=== PATIENT | female | born 1980 | race Caucasian/White ===

== ENCOUNTER 2016-11-17 15:37 | Emergency (ER) | payer OTHER ==
[~2016-11-17] VITALS: Ht 180.3 cm; Wt 107.9 kg
[~2016-11-17 15:37] MED LIST: CYM20 PO; FLUO20CA35 PO; FLUO40CA8 PO; FURO40TA3 PO; LINA1CAP PO; LITH300T2 PO; LYR50 PO; POTA-327 PO; TRAZ100T29 PO
[2016-11-17 15:39] VITALS: TEMP 36.9; Ht 180.3 cm; Wt 107.9 kg
[2016-11-17] MEDS ORDERED: POTA20TA16 PO (16:01)
[2016-11-17] MEDS ORDERED: OPTIRAY 320 IV PRN (16:15)
[2016-11-17 16:51] LABS: COMPLETE YES; EOS % 0.7 %; HEMATOCRIT 36.7 % (37-47); IG% 0.1 %; LYMPH % 23.2 %; LYMPH ABS # 1.72 K/uL (1.2-3.4); MEAN CELL VOLUME 91.8 fL (80-100); MEAN CORPUSCULAR HEMOGLOBIN 30.5 pg (25-34); MEAN CORPUSCULAR HGB CONC 33.2 g/dl (32-36); MONO % 4.1 %; NEUT % 71.9 %; PLATELET COUNT 175 K/uL (130-400)
[2016-11-17 17:14] LABS: ALT/SGPT 20 U/L (12-78); AST/SGOT 10 U/L (15-37); BLOOD UREA NITROGEN 16 mg/dl (7-18); CALCIUM 8.5 mg/dl (8.5-10.1); CARBON DIOXIDE 28 mmol/L (21-32); CHLORIDE 107 mmol/L (98-107); CREATININE 0.82 mg/dl (0.60-1.20); GLUCOSE 110 mg/dl (70-99); POTASSIUM 3.7 mmol/L (3.5-5.1); SODIUM 141 mmol/L (136-145)
[2016-11-17 17:16] LABS: ALB/GLOB RATIO 1.1 (0.9-2); ALKALINE PHOSPHATASE 54 U/L (45-117)
[2016-11-17] MEDS ORDERED: MoRPHine SULFATE 10 MG/ML CARP/VIAL IV STA (17:21)
[2016-11-17 17:45] LABS: URINE APPEARANCE CLEAR (CLEAR); URINE BILIRUBIN NEG (NEG); URINE COLOR YELLOW; URINE NITRITE NEG (NEG); URINE SPECIFIC GRAVITY 1.032 (1.000-1.030); UROBILINOGEN NEG (NEG); ZZUR CULT IF INDIC CLEAN CATCH NO
[2016-11-17 18:06] LABS: MANUAL MICROSCOPIC REQUIRED? NO; REVIEW REQ? NO
[2016-11-17] MEDS ORDERED: MoRPHine SULFATE 4 MG/ML 1 ML CARP\\VIAL IV STA (18:36)
--- NOTE | 2016-11-17 18:46 | DIAGNOSTIC IMAGING REPORT ---
ABDOMEN AND PELVIS CT WITH IV CONTRAST CT DOSE: 970.88 mGy.cm HISTORY: Right lower quadrant abdominal pain. TECHNIQUE: Multiaxial CT images of the abdomen and pelvis were performed following the use of intravenous contrast. COMPARISON STUDY: Abdomen and pelvis CT 02/28/2015. FINDINGS: Trace bilateral pleural effusions and a trace pericardial effusion. Groundglass densities within the lung bases posteriorly likely represent mild atelectasis. No pneumoperitoneum. No pneumatosis. No suspicious lytic or blastic osseous lesions. Mild thickening of the distal esophagus. Trace pelvic free fluid. The liver, spleen, gallbladder, pancreas, adrenal glands, and right kidney are unremarkable. There is a punctate stone within the left kidney. No hydronephrosis. Normal bladder and uterus. There are few small bilateral ovarian cysts which are in the range of normal limits. No retroperitoneal lymphadenopathy. No bowel wall thickening or obstruction. Normal appendix. IMPRESSION: 1. No bowel wall thickening or obstruction. 2. Normal appendix. 3. Left-sided nephrolithiasis. No hydronephrosis. 4. Trace pericardial effusion and trace bilateral pleural effusions. 5. Mild thickening of the distal esophagus. Electronically signed by: Ari Davis M.D. 11/17/2016 6:44 PM Dictated Date/Time: 11/17/2016 6:36 PM
--- NOTE | 2016-11-17 19:22 | EMERGENCY ROOM VISIT NOTE ---
History First contact with patient: 15:43 Chief Complaint: ABDOMINAL PAIN Stated Complaint: ABDOMINAL PAIN, DISTENTION Nursing Triage Summary: Pt c/o diarrhea with red blood since Tuesday night, clots in stool, diarrhea, pain in right lower abdomen initially but now it's all over and goes into right side of back as well, and "my belly is distended, I feel like I'm " History of Present Illness The patient is a 35 year old female who presents to the Emergency Room with complaints of abdominal pain and distention. The patient states that she has had "bowel issues" for several months. She states that these symptoms intermittently becomes severe. She states she has had a feeling of distention in her abdomen for the past several days. She did have a loose stool with a small amount of blood several days ago, but states that she has not had any blood in the stools since then. She has been slightly constipated. She reports that today, she has had a severe right lower quadrant pain which has spread to the rest of her abdomen. She states that whenever she eats, she developed severe heartburn. The patient has seen her primary care provider and most recently saw him yesterday for the symptoms. She has seen gastroenterology , who prescribed her Linzess. She states she has tried several other medications in the past with no relief. She has had some associated nausea, but no vomiting. She denies chance of . She denies urinary symptoms, vaginal discharge, vaginal bleeding, chest pain or shortness of breath. Review of Systems A complete 10-point Review of Systems was discussed with the patient, with pertinent positives and negatives listed in the History of Present Illness. All remaining Review of Systems questions can be considered negative unless otherwise specified. Past Medical/Surgical History Medical Problems: (1) Alcohol dependence (2) Anxiety (3) Bipolar 1 disorder (4) Depression (5) GERD (gastroesophageal reflux disease) (6) Tobacco abuse (7) Vitamin D deficiency Surgical Problems: (1) Previous section Social History Problems: (1) Alcohol abuse Family History FH: cancer FH: diabetes mellitus FH: heart disease FH: lung disease FH: seizures Social History Smoking Status: Current Some Day Smoker Alcohol Use: none Drug Use: none Marital Status: in relationship Housing Status: lives with significant other Occupation Status: employed Current/Historical Medications Scheduled Fluoxetine (Prozac), 40 MG PO QPM Furosemide (Lasix), 40 MG PO QAM Notus Carbonate (Notus Carbonate Tab), 600 MG PO HS Potassium Ext Rel (Klor-Con), 10 MEQ PO QAM Trazodone Hcl (Trazodone), 200 MG PO HS Allergies Coded Allergies: No Known Allergies (Verified , 11/17/16) Physical Exam Vital Signs Date Time Temp Pulse Resp B/P Pulse Ox O2 Delivery O2 Flow Rate FiO2 11/17/16 19:30 71 16 105/72 98 Room Air 11/17/16 17:35 58 20 101/62 97 Room Air 11/17/16 15:39 36.9 90 16 105/72 98 Room Air Physical Exam VITALS: Vitals are noted on the nurse's note and reviewed by myself. Vital signs stable. GENERAL: This is a 35-year-old female, in no acute distress, nondiaphoretic, well-developed well-nourished. SKIN: Capillary reflex less than 2 seconds. HEENT: Normocephalic. PERRLA. EOMI. Nares patent. Mucous membranes moist. Neck is supple without nuchal rigidity. HEART: Regular rate and rhythm without murmurs gallops or rubs. LUNGS: Clear to auscultation bilaterally without wheezes, rales or rhonchi. No retractions or accessory muscle use. ABDOMEN: Positive bowel sounds x 4. Mild tenderness of the right lower quadrant. No guarding or rebound tenderness. NEURO: Patient was alert and oriented to person place and time. Medical Decision & Procedures ER Provider Diagnostic Interpretation: ABDOMEN AND PELVIS CT WITH IV CONTRAST CT DOSE: 970.88 mGy.cm HISTORY: Right lower quadrant abdominal pain. TECHNIQUE: Multiaxial CT images of the abdomen and pelvis were performed following the use of intravenous contrast. COMPARISON STUDY: Abdomen and pelvis CT 02/28/2015. FINDINGS: Trace bilateral pleural effusions and a trace pericardial effusion. Groundglass densities within the lung bases posteriorly likely represent mild atelectasis. No pneumoperitoneum. No pneumatosis. No suspicious lytic or blastic osseous lesions. Mild thickening of the distal esophagus. Trace pelvic free fluid. The liver, spleen, gallbladder, pancreas, adrenal glands, and right kidney are unremarkable. There is a punctate stone within the left kidney. No hydronephrosis. Normal bladder and uterus. There are few small bilateral ovarian cysts which are in the range of normal limits. No retroperitoneal lymphadenopathy. No bowel wall thickening or obstruction. Normal appendix. IMPRESSION: 1. No bowel wall thickening or obstruction. 2. Normal appendix. 3. Left-sided nephrolithiasis. No hydronephrosis. 4. Trace pericardial effusion and trace bilateral pleural effusions. 5. Mild thickening of the distal esophagus. Laboratory Results 11/17/16 16:20 Red Blood Count 4.00, Mean Corpuscular Volume 91.8, Mean Corpuscular Hemoglobin 30.5, Mean Corpuscular Hemoglobin Concent 33.2, Mean Platelet Volume 11.0, Neutrophils (%) (Auto) 71.9, Lymphocytes (%) (Auto) 23.2, Monocytes (%) (Auto) 4.1, Eosinophils (%) (Auto) 0.7, Basophils (%) (Auto) 0.0, Neutrophils # (Auto) 5.32, Lymphocytes # (Auto) 1.72, Monocytes # (Auto) 0.30, Eosinophils # (Auto) 0.05, Basophils # (Auto) 0.00 11/17/16 16:20 Test 11/17/16 16:20 White Blood Count 7.40 K/uL (4.8-10.8) Red Blood Count 4.00 M/uL (4.2-5.4) Hemoglobin 12.2 g/dL (12.0-16.0) Hematocrit 36.7 % (37-47) Mean Corpuscular Volume 91.8 fL (80-100) Mean Corpuscular Hemoglobin 30.5 pg (25-34) Mean Corpuscular Hemoglobin Concent 33.2 g/dl (32-36) Platelet Count 175 K/uL (130-400) Mean Platelet Volume 11.0 fL (7.4-10.4) Neutrophils (%) (Auto) 71.9 % Lymphocytes (%) (Auto) 23.2 % Monocytes (%) (Auto) 4.1 % Eosinophils (%) (Auto) 0.7 % Basophils (%) (Auto) 0.0 % Neutrophils # (Auto) 5.32 K/uL (1.4-6.5) Lymphocytes # (Auto) 1.72 K/uL (1.2-3.4) Monocytes # (Auto) 0.30 K/uL (0.11-0.59) Eosinophils # (Auto) 0.05 K/uL (0-0.5) Basophils # (Auto) 0.00 K/uL (0-0.2) RDW Standard Deviation 39.3 fL (36.4-46.3) RDW Coefficient of Variation 11.6 % (11.5-14.5) Immature Granulocyte % (Auto) 0.1 % Immature Granulocyte # (Auto) 0.01 K/uL (0.00-0.02) Urine Color YELLOW Urine Appearance CLEAR (CLEAR) Urine pH 6.0 (4.5-7.5) Urine Specific Moore 1.032 (1.000-1.030) Urine Protein NEG (NEG) Urine Glucose (UA) NEG (NEG) Urine Ketones NEG (NEG) Urine Occult Blood NEG (NEG) Urine Nitrite NEG (NEG) Urine Bilirubin NEG (NEG) Urine Urobilinogen NEG (NEG) Urine Leukocyte Esterase NEG (NEG) Urine Test NEG (NEG) Anion Gap 6.0 mmol/L (3-11) Est Creatinine Clear Calc Drug Dose 129.4 ml/min Estimated GFR () 107.5 Estimated GFR (Non- 92.7 BUN/Creatinine Ratio 19.0 (10-20) Calcium Level 8.5 mg/dl (8.5-10.1) Total Bilirubin < 0.1 mg/dl (0.2-1) Aspartate Amino Transf (AST/SGOT) 10 U/L (15-37) Alanine Aminotransferase (ALT/SGPT) 20 U/L (12-78) Alkaline Phosphatase 54 U/L (45-117) Total Protein 6.5 gm/dl (6.4-8.2) Albumin 3.4 gm/dl (3.4-5.0) Globulin 3.1 gm/dl (2.5-4.0) Albumin/Globulin Ratio 1.1 (0.9-2) Lipase 161 U/L (73-393) Medications Administered Medications (Trade) Dose Ordered Sig/Abel Route Start Time Stop Time Status Last Admin Dose Admin Morphine Sulfate (MoRPHine SULFATE INJ) 6 mg NOW STAT IV 11/17/16 17:21 11/17/16 17:22 DC 11/17/16 17:35 6 MG Morphine Sulfate (MoRPHine SULFATE INJ) 4 mg NOW STAT IV 11/17/16 18:36 11/17/16 18:37 DC 11/17/16 18:43 4 MG Medical Decision Differential diagnosis includes gastroenteritis, colitis, appendicitis, cholecystitis, ovarian cyst, ovarian torsion, pelvic inflammatory disease, among others. The patient was evaluated as above. Labs were drawn and IV access was obtained. Imaging studies were performed and read by radiology as above. The patient was medicated with 6 mg morphine IV. She did require an additional 4 mg morphine IV. The patient was reassessed multiple times during their stay in the emergency department and remained in stable condition. The patient is a 35-year-old female who presents today complaining of right lower quadrant abdominal pain. Labs revealed no leukocytosis, anemia or concerning electrolyte abnormality. Urinalysis was not suggestive of infection. Urine was negative. CT scan of the abdomen and pelvis with IV contrast revealed no acute findings within the abdomen. Notably, there were found to be trace pericardial and pleural effusions. I am unsure of the cause and clinical significance of these. The patient was informed of this finding and was told to follow-up with her primary care provider regarding this finding. There was some thickening of the distal esophagus which could be secondary to esophagitis. The patient was instructed to take a PPI. She will follow-up with her primary care provider and vamper. She will return for worsening symptoms. Based on the patient's presentation, lab results, and imaging studies, I feel the patient is stable for outpatient treatment. The patient's case was reviewed with Dr. Menjivar, ED attending physician, who agreed with my assessment and treatment plan. Discharge instructions were reviewed with the patient. The patient verbalized understanding of my assessment and treatment plan and was discharged home in good condition. Impression Primary Impression: Right lower quadrant abdominal pain Departure Information Dispostion Home / Self-Care Condition GOOD Referrals Elaina Paul A. P.A. (PCP) Patient Instructions My [facility] Additional Instructions You have been treated in the Emergency Department your Abdominal Pain. Laboratory results and imaging studies have ruled out any emergent causes for your abdominal pain which would warrant admission or surgery. Your CT scan did show a small amount of fluid around the heart and lungs. He should follow-up with your primary care provider regarding this and for possible cardiology referral. You may begin taking an [id number] acid reducing medication like Prilosec. Drink plenty of water and stay well hydrated. Follow-up with your primary care provider within one week. She should also follow-up with your vamper within 1-2 weeks for further evaluation. Return to the emergency department if your symptoms persist despite treatment plan outlined above or if the following symptoms occur: increased fevers, chills , worsening nausea/vomiting, blood in your stool or urine.
[2016-11-17 19:30] VITALS: BP 105/72; PULSE 71; O2SAT 98
[2017-04-29] MEDS ORDERED: VLTG EXT (15:40)
[2017-04-29] MEDS ORDERED: ANT25 PO (15:40)
== END 2016-11-17 19:41 | disposition home or self-care (01) ==
LOC: C.EDB 15:38 → C.EDC 19:41
DX: R10.31 Right lower quadrant pain (principal); F17.200 Nicotine dependence, unspecified, uncomplicated; F10.94 Alcohol use, unspecified with alcohol-induced mood disorder; F31.9 Bipolar disorder, unspecified; K21.9 Gastro-esophageal reflux disease without esophagitis

== ENCOUNTER 2017-01-05 10:08 | Emergency (ER) | payer OTHER ==
[~2017-01-05] VITALS: Ht 177.8 cm; Wt 108.0 kg
[~2017-01-05 10:08] MED LIST changes: -CYM20 PO; -FLUO20CA35 PO; -LINA1CAP PO; -LYR50 PO; -POTA-327 PO; +POTA20TA16 PO
[2017-01-05 10:12] VITALS: TEMP 36.5; Ht 177.8 cm; Wt 108.0 kg
[2017-01-05] MEDS ORDERED: FLX/5 PO (10:39)
[2017-01-05] MEDS ORDERED: PRLSR20 PO (10:39)
[2017-01-05] MEDS ORDERED: GLC/500 PO (10:39)
[2017-01-05] MEDS ORDERED: MELO15TA4 PO (10:39)
[2017-01-05] MEDS ORDERED: GLC500 PO (10:39)
[2017-01-05] MEDS ORDERED: ZNTT/150 PO (10:39)
[2017-01-05] MEDS ORDERED: FLUO20CA35 PO (10:39)
[2017-01-05 10:48] LABS: BASO % 0.1 %; BASO ABS # 0.01 K/uL (0-0.2); COMPLETE YES; EOS % 0.1 %; HEMATOCRIT 38.1 % (37-47); IG% 0.2 %; LYMPH % 4.2 %; LYMPH ABS # 0.45 K/uL (1.2-3.4); MEAN CORPUSCULAR HEMOGLOBIN 30.8 pg (25-34); MEAN CORPUSCULAR HGB CONC 34.6 g/dl (32-36); MEAN PLATELET VOLUME 10.7 fL (7.4-10.4); MONO % 3.9 %; NEUT % 91.5 %; PLATELET COUNT 190 K/uL (130-400); RED BLOOD COUNT 4.28 M/uL (4.2-5.4); WHITE BLOOD COUNT 10.61 K/uL (4.8-10.8)
[2017-01-05 10:53] LABS: URINE APPEARANCE CLEAR (CLEAR); URINE BILIRUBIN NEG (NEG); URINE COLOR YELLOW; URINE EPITHELIAL CELL AUTO >30 /lpf (0-5); URINE NITRITE NEG (NEG); URINE PH 5.5 (4.5-7.5); URINE SPECIFIC GRAVITY 1.028 (1.000-1.030); UROBILINOGEN NEG (NEG); ZZUR CULT IF INDIC CLEAN CATCH NO
[2017-01-05 10:56] LABS: MANUAL MICROSCOPIC REQUIRED? NO; REVIEW REQ? NO
[2017-01-05 11:00] LABS: BUN/CREATININE RATIO 20.5 (10-20); CALCIUM 8.3 mg/dl (8.5-10.1); POTASSIUM 3.6 mmol/L (3.5-5.1)
[2017-01-05] MEDS ORDERED: FENTANYL CITRATE INJ 50 MCG/1 ML 2 ML VIAL IM ONE (11:30)
[2017-01-05] MEDS ORDERED: FAMOTIDINE IV INJ 40 MG in DEXTROSE 5% 100ML 100 ML IV SCH (11:30)
[2017-01-05] MEDS ORDERED: ONDANSETRON INJ 2 MG/ML 2 ML VIAL IV STA (11:35)
[2017-01-05] MEDS ORDERED: POTASSIUM CHLORIDE 10 MEQ / 100ML WTR IV STA (11:35)
--- NOTE | 2017-01-05 11:43 | EMERGENCY ROOM VISIT NOTE ---
History Report prepared by Jaime: Rhianna Glass Under the Supervision of: Dr. Rowdy Sams D.O. First contact with patient: 10:55 Chief Complaint: VOMITING Stated Complaint: THROWING UP BLOOD,ABD PAIN, WEAKNESS IN LEGS Nursing Triage Summary: pt here with abd pain x 2 weeks, pt states vomited times with pink blood today. pt states also having bilateral leg pains. History of Present Illness The patient is a 36 year old female who presents to the Emergency Room with complaints of worsening abdominal pain for the past 2 weeks. Her pain is located diffusely throughout her abdomen but is worse in the epigastric area. She rates her current pain as a 9/10 in severity. This morning the patient developed nausea and had intermittent vomiting. She states that there is red blood in her vomit, and she describes her emesis as looking "like Toni-Aid." The patient reports abdominal bloating and bilateral leg pain, as well as " dizzy spells" where she becomes hot and diaphoretic. She was evaluated by her PCP for her abdominal pain 2 weeks ago and was prescribed Bentyl for possible IBS. The patient states that her symptoms have been getting worse since starting the Bentyl so she stopped taking it. She is not currently taking any medications for pain. Two weeks ago the patient was also placed on metformin. Eating large amounts of food seems to exacerbate her symptoms, so she has been eating very small amounts. The patient denies black or bloody stools, vaginal discharge, vaginal odor, and vaginal itching. She is sexually active. She has had 3 c-sections but denies any other previous abdominal surgeries. The patient is a recovering alcoholic and has not had any alcohol for about 8 months. She is taking Zantac and Prilosec. Source of History: patient Onset: 2 weeks ago Position: abdomen Symptom Intensity: 9/10 Timing: worsening Modifying Factors (Worsening): eating (large quantities), other (possible medications (Bentyl)) Associated Symptoms: + diaphoresis, + nausea, + vomiting (with hematemesis) , No hematochezia, No melena Note: Pt reports bilateral leg pain. Pt denies vaginal discharge, odor, and itching. Review of Systems See above for pertinent positives & negatives. A total of 10 systems reviewed and were otherwise negative. Past Medical & Surgical Medical Problems: (1) Alcohol dependence (2) Anxiety (3) Bipolar 1 disorder (4) Depression (5) GERD (gastroesophageal reflux disease) (6) Tobacco abuse (7) Vitamin D deficiency Surgical Problems: (1) Previous section Social History Problems: (1) Alcohol abuse Family History FH: cancer FH: diabetes mellitus FH: heart disease FH: lung disease FH: seizures Social History Smoking Status: Never Smoker Alcohol Use: other (former alcoholic) Drug Use: none Marital Status: in relationship Housing Status: lives with significant other Occupation Status: employed Current/Historical Medications Scheduled Amoxicillin (Amoxil), 2 CAP PO BID Doxycycline Hyclate (Doxycycline Hyclate), 1 TAB PO BID Fluoxetine (Prozac), 60 MG PO QPM Furosemide (Lasix), 40 MG PO QAM [place] Carbonate ([place] Carbonate Tab), 600 MG PO HS Metformin HCl (Metformin HCl), 500 MG PO QPM Metformin Hcl (Glucophage), 250 MG PO QAM Omeprazole (Prilosec), 20 MG PO QAM Potassium Ext Rel (Klor-Con), 10 MEQ PO QAM Ranitidine (Zantac), 150 MG PO HS Trazodone Hcl (Trazodone), 200 MG PO HS Scheduled PRN Cyclobenzaprine HCl (Cyclobenzaprine HCl), 5 MG PO BID PRN for PRN Hydrocodon/Acetaminophen 5MG/300MG (Vicodin (5MG/300MG)), 1 TAB PO Q6H PRN for Pain Meloxicam (Meloxicam), 15 MG PO BID PRN for Pain Promethazine Hcl (Phenergan), 25 MG PO Q6H PRN for Nausea Allergies Coded Allergies: No Known Allergies (Verified , 01/05/17) Physical Exam Vital Signs Date Time Temp Pulse Resp B/P Pulse Ox O2 Delivery O2 Flow Rate FiO2 01/05/17 13:10 75 18 107/68 95 Room Air 01/05/17 11:47 78 16 106/62 94 Room Air 01/05/17 10:12 36.5 73 16 113/76 94 Room Air Physical Exam GENERAL: Patient is well appearing and in no acute distress. HEENT: No acute trauma, normocephalic atraumatic, mucous membranes moist, no nasal congestion, no scleral icterus. NECK: No stridor, no adenopathy, no meningismus, trachea is midline. LUNGS: No dyspnea. Clear to auscultation and equal bilaterally. No wheeze, no rhonchi. HEART: Regular rate and rhythm. No murmurs, rubs, gallops appreciated. ABDOMEN: Soft, diffuse tenderness to palpation, no guarding or rebound, bowel sounds positive, no masses appreciated, no peritonitis. BACK: No midline tenderness, no CVA tenderness EXTREMITIES: Normal motion all extremities, no cyanosis, no edema. NEUROLOGIC: Alert and oriented, no acute motor or sensory deficits, no focal weakness, cranial nerves grossly intact. SKIN: No rash, no jaundice, no diaphoresis. Medical Decision & Procedures Laboratory Results 01/05/17 10:30 Red Blood Count 4.28, Mean Corpuscular Volume 89.0, Mean Corpuscular Hemoglobin 30.8, Mean Corpuscular Hemoglobin Concent 34.6, Mean Platelet Volume 10.7, Neutrophils (%) (Auto) 91.5, Lymphocytes (%) (Auto) 4.2, Monocytes (%) (Auto) 3.9, Eosinophils (%) (Auto) 0.1, Basophils (%) (Auto) 0.1, Neutrophils # (Auto) 9.71, Lymphocytes # (Auto) 0.45, Monocytes # (Auto) 0.41, Eosinophils # (Auto) 0.01, Basophils # (Auto) 0.01 01/05/17 10:30 Test 01/05/17 10:30 White Blood Count 10.61 K/uL (4.8-10.8) Red Blood Count 4.28 M/uL (4.2-5.4) Hemoglobin 13.2 g/dL (12.0-16.0) Hematocrit 38.1 % (37-47) Mean Corpuscular Volume 89.0 fL (80-100) Mean Corpuscular Hemoglobin 30.8 pg (25-34) Mean Corpuscular Hemoglobin Concent 34.6 g/dl (32-36) Platelet Count 190 K/uL (130-400) Mean Platelet Volume 10.7 fL (7.4-10.4) Neutrophils (%) (Auto) 91.5 % Lymphocytes (%) (Auto) 4.2 % Monocytes (%) (Auto) 3.9 % Eosinophils (%) (Auto) 0.1 % Basophils (%) (Auto) 0.1 % Neutrophils # (Auto) 9.71 K/uL (1.4-6.5) Lymphocytes # (Auto) 0.45 K/uL (1.2-3.4) Monocytes # (Auto) 0.41 K/uL (0.11-0.59) Eosinophils # (Auto) 0.01 K/uL (0-0.5) Basophils # (Auto) 0.01 K/uL (0-0.2) RDW Standard Deviation 38.5 fL (36.4-46.3) RDW Coefficient of Variation 11.9 % (11.5-14.5) Immature Granulocyte % (Auto) 0.2 % Immature Granulocyte # (Auto) 0.02 K/uL (0.00-0.02) Urine Color YELLOW Urine Appearance CLEAR (CLEAR) Urine pH 5.5 (4.5-7.5) Urine Specific [place] 1.028 (1.000-1.030) Urine Protein NEG (NEG) Urine Glucose (UA) NEG (NEG) Urine Ketones NEG (NEG) Urine Occult Blood NEG (NEG) Urine Nitrite NEG (NEG) Urine Bilirubin NEG (NEG) Urine Urobilinogen NEG (NEG) Urine Leukocyte Esterase TRACE (NEG) Urine WBC (Auto) 1-5 /hpf (0-5) Urine RBC (Auto) 0-4 /hpf (0-4) Urine Hyaline Casts (Auto) 1-5 /lpf (0-5) Urine Epithelial Cells (Auto) >30 /lpf (0-5) Urine Bacteria (Auto) NEG (NEG) Urine Test NEG (NEG) Anion Gap 10.0 mmol/L (3-11) Est Creatinine Clear Calc Drug Dose 103.5 ml/min Estimated GFR () 83.9 Estimated GFR (Non- 72.4 BUN/Creatinine Ratio 20.5 (10-20) Calcium Level 8.3 mg/dl (8.5-10.1) Total Bilirubin 0.5 mg/dl (0.2-1) Aspartate Amino Transf (AST/SGOT) 9 U/L (15-37) Alanine Aminotransferase (ALT/SGPT) 19 U/L (12-78) Alkaline Phosphatase 55 U/L (45-117) Total Protein 7.6 gm/dl (6.4-8.2) Albumin 3.8 gm/dl (3.4-5.0) Globulin 3.8 gm/dl (2.5-4.0) Albumin/Globulin Ratio 1.0 (0.9-2) Lipase 159 U/L (73-393) [place] Level 0.5 mMOL/L (0.6-1.2) Laboratory results as reviewed by me. Medications Administered Medications (Trade) Dose Ordered Sig/Abel Route Start Time Stop Time Status Last Admin Dose Admin Fentanyl Citrate 50 mcg 50 mcg NOW ONCE IM 01/05/17 11:30 01/05/17 11:32 DC 01/05/17 11:46 50 MCG Famotidine/ Dextrose (Pepcid IV Inj/ D5 100ml) 104 ml @ 200 mls/hr Q12H IV 01/05/17 11:30 02/04/17 11:29 01/05/17 12:42 200 MLS/HR Potassium Chloride (Kcl 10 Meq / Wtr) 10 meq NOW STAT IV 01/05/17 11:35 01/05/17 11:38 DC 01/05/17 11:46 10 MEQ Ondansetron HCl (Zofran Inj) 4 mg NOW STAT IV 01/05/17 11:35 01/05/17 11:38 DC 01/05/17 11:45 4 MG Hydromorphone HCl (Dilaudid Inj) 0.5 mg STK-MED ONCE .ROUTE 01/05/17 12:50 01/05/17 12:53 DC 01/05/17 12:55 0.5 MG ECG Indication: abdominal pain Rate (beats per minute): 77 Rhythm: normal sinus Findings: nonspecific-ST abn, prolonged QT, other (normal axis; QRS 463) Comparison ECG Date: 05/07/16 Change: no significant change ED Course 1120: The patient was evaluated in room C5. A complete history and physical exam was performed. 1130: Famotidine 40 mg/Dextrose 104 ml @ 200 mls/hr IV, Fentanyl citrate 50 mcg IM 1135: Zofran 4 mg IV, Potassium Chloride 10 meq IV 1250: Dilaudid 0.5 mg Inj 1346: At this time I performed a bedside F.A.S.T. ultrasound of the patient's abdomen that was normal. I discussed the results and treatment plan with the patient. I answered all pertaining questions that she had. She expressed understanding and verbalized agreement. The patient will be discharged home. 1421: Tylenol tab 1000 mg PO Medical Decision Differential: Appendicitis, Diverticulitis, PUD/Gastritis, Biliary Pathology, UTI, Pyelonephritis, Renal Colic, Bowel Obstruction, Aortic Pathology, Acute Coronary Syndrome, amongst other pathologies entertained. Patient is a 36-year-old female who is complaining of 2 weeks of abdominal pain worse in the last 24 hours. She states she's been nauseous and vomiting she says there is blood in the vomit and that the entire emesis was read. I offered to perform a lavage to confirm there is no significant gastrointestinal bleeding and the patient deferred. Patient states she is having occasional bouts of diarrhea however there has been no change in the color or stool is not melanotic nor bright red blood. Patient was seen back in October for similar type pains which she was started on a Pepcid and Prilosec and she has had significant improvement in her abdominal pain since then. Physical exam revealed diffuse tenderness that localizes significantly to the mid epigastric region consistent with a gastritis versus peptic ulcer disease. There is no significant hepatosplenomegaly, the patient had a CT scan performed this October, I reviewed the results as well as the images and do not feel that additional radiation exposure is warranted at this time. He'll most likely diagnosis is gastritis secondary to H. pylori, she has not been treated before, I will start empiric treatment at this time and have her follow-up with her primary care provider. I am opting for doxycycline is that of clarithromycin because the patient has a mildly prolonged QTC at 463. She'll be treated with doxycycline 100 mg twice a day as well as 1 g amoxicillin twice daily for 14 days. I have instructed the patient to continue her Pepcid and Prilosec. She is also given 6 tablets of Phenergan, I reviewed the drug interactions, there is an interaction phenothiazine lives, however I think it is of only mild significance and the swelling will be given her 6 tablets. I would be more concerned about giving her a QT prolonging medication. Patient's lithium level was 0.5, she reports that this is normal for her and her prescriber allows her to stay at that level. Patient will be discharged home in improved stable condition. Impression Primary Impression: Acute gastritis Additional Impressions: Helicobacter pylori gastritis Vomiting Scribe Attestation The scribe's documentation has been prepared under my direction and personally reviewed by me in its entirety. I confirm that the note above accurately reflects all work, treatment, procedures, and medical decision making performed by me. Departure Information Dispostion Home / Self-Care Prescriptions Promethazine Hcl (Phenergan) 25 Mg Tab 25 MG PO Q6H Y for Nausea, #6 TAB Prov: Rowdy Sams D.O. 01/05/17 Hydrocodon/Acetaminophen 5MG/300MG (VICODIN (5MG/300MG)) 1 Tab Tab 1 TAB PO Q6H Y for Pain, #10 TAB Prov: Rowdy Sams D.O. 01/05/17 Amoxicillin (AMOXIL) 500 Mg Cap 2 CAP PO BID for 14 Days, #56 CAP Prov: oRwdy Sams D.O. 01/05/17 Doxycycline Hyclate (DOXYCYCLINE HYCLATE) 100 Mg Tab 1 TAB PO BID for 14 Days, #28 TAB Prov: Rowdy Sams D.ODarline 01/05/17 Referrals Elaina Paul (PCP) Forms HOME CARE DOCUMENTATION FORM, IMPORTANT VISIT INFORMATION Patient Instructions ED Gastritis, ED PUD Vs Gastritis, My [facility] Additional Instructions Follow-up with her primary care provider in 2-3 weeks. You have been given a prescription to be treated for H. pylori, finish all the antibiotics. Continue taking her antiacid medication. Return for severe abdominal pain, vomiting and inability to keep fluids down, or any other concerns. One of the antibiotics (doxycycline) can make you sensitive to light, it is easier to be sunburned. Problem Qualifiers Additional Impressions: Vomiting Vomiting type: unspecified Vomiting Intractability: non-intractable Nausea presence: with nausea Qualified Codes: R11.2 - Nausea with vomiting, unspecified
[2017-01-05] MEDS ORDERED: HYDROmorphone INJ 0.5 MG/0.5 ML SYR ONE (12:50)
[2017-01-05] MEDS ORDERED: AMOX500C3 PO (14:11)
[2017-01-05] MEDS ORDERED: DOXY100T PO (14:11)
[2017-01-05] MEDS ORDERED: PROM25TA9 PO (14:15)
[2017-01-05] MEDS ORDERED: HYDR-3419 PO (14:15)
[2017-01-05] MEDS ORDERED: ACETAMINOPHEN 500 MG TAB PO STA (14:21)
[2017-01-05 14:36] VITALS: BP 109/77; PULSE 98; O2SAT 99
[2017-04-29] MEDS ORDERED: ANT25 PO (15:40)
[2017-04-29] MEDS ORDERED: VLTG EXT (15:40)
== END 2017-01-05 14:43 | disposition home or self-care (01) ==
LOC: C.EDB 10:10 → C.EDC 14:43
DX: K29.00 Acute gastritis without bleeding (principal); B96.81 Helicobacter pylori [H. pylori] as the cause of diseases classified elsewhere; R11.10 Vomiting, unspecified; F31.9 Bipolar disorder, unspecified; F41.9 Anxiety disorder, unspecified

== ENCOUNTER 2017-04-26 14:14 | Observation (INO) | payer OTHER ==
[~2017-04-26] VITALS: Ht 180.3 cm; Wt 107.6 kg
[~2017-04-26 14:14] MED LIST changes: +FLUO20CA35 PO; -FLUO40CA8 PO; +FLX/5 PO; +GLC/500 PO; +GLC500 PO; +HYDR-3419 PO; +MELO15TA4 PO; +PRLSR20 PO; +PROM25TA9 PO; +ZNTT/150 PO
[2017-04-26] MEDS ORDERED: MECLIZINE HCL 25 MG TAB PO STA (14:42)
[2017-04-26] MEDS ORDERED: SODIUM CHLORIDE 0.9% 1000ML 1,000 ML IV ONE (14:45)
[2017-04-26] MEDS ORDERED: OPTIRAY 320 IV PRN (15:00)
[2017-04-26 15:09] LABS: BASO % 0.2 %; BASO ABS # 0.01 K/uL (0-0.2); COMPLETE YES; EOS % 0.6 %; LYMPH % 38.6 %; LYMPH ABS # 1.81 K/uL (1.2-3.4); MEAN CELL VOLUME 89.3 fL (80-100); MEAN CORPUSCULAR HEMOGLOBIN 29.3 pg (25-34); MEAN CORPUSCULAR HGB CONC 32.8 g/dl (32-36); MEAN PLATELET VOLUME 10.1 fL (7.4-10.4); MONO % 5.8 %; NEUT % 54.8 %; PLATELET COUNT 194 K/uL (130-400); RED BLOOD COUNT 4.03 M/uL (4.2-5.4); WHITE BLOOD COUNT 4.69 K/uL (4.8-10.8)
[2017-04-26 15:29] LABS: BUN/CREATININE RATIO 20.6 (10-20); CALCIUM 8.7 mg/dl (8.5-10.1); CREATININE 0.87 mg/dl (0.60-1.20); POTASSIUM 3.8 mmol/L (3.5-5.1)
[2017-04-26 15:40] LABS: THYROID STIMULATING HORMONE 0.687 uIu/ml (0.300-4.500)
[2017-04-26 16:26] LABS: LYME DISEASE AB IGG NEG (NEG); LYME DISEASE AB IGM NEG (NEG)
[2017-04-26 16:27] LABS: URINE APPEARANCE CLEAR (CLEAR); URINE BILIRUBIN NEG (NEG); URINE COLOR YELLOW; URINE NITRITE NEG (NEG); URINE PH 7.5 (4.5-7.5); URINE SPECIFIC GRAVITY 1.019 (1.000-1.030); UROBILINOGEN NEG (NEG); ZZUR CULT IF INDIC CLEAN CATCH NO
[2017-04-26 16:29] LABS: MANUAL MICROSCOPIC REQUIRED? NO; REVIEW REQ? NO
[2017-04-26 16:52] LABS: BENZODIAZEPINE, URINE NEG (NEG); COCAINE,URINE NEG (NEG); PHENCYCLIDINE, URINE NEG (NEG)
--- NOTE | 2017-04-26 17:11 | DIAGNOSTIC IMAGING REPORT ---
HEAD CTA HISTORY: Mental status change headache TECHNIQUE: Multiaxial CT images of the head were performed both before and after the intravenous administration of contrast to evaluate the major cerebral vessels. Maximum intensity projection images were also obtained. COMPARISON: None. FINDINGS: There is no mass, hematoma, midline shift, or acute infarct. Visualized intracranial internal carotid arteries, distal vertebral arteries, and basilar artery are widely patent. There is no significant stenosis, occlusion, or aneurysm seen within the bilateral ACAs, MCAs, or planning feeder. IMPRESSION: No significant stenosis, occlusion, or aneurysm within the [place]. Electronically signed by: Sherif Otoole M.D. 04/26/2017 5:10 PM Dictated Date/Time: 04/26/2017 5:07 PM
--- NOTE | 2017-04-26 17:14 | DIAGNOSTIC IMAGING REPORT ---
NECK CTA HISTORY: Mental status change neck pain TECHNIQUE: Multiaxial CT images of the neck were performed following the intravenous administration of contrast to evaluate the major cervical vessels. Maximum intensity projection images were also obtained. All measurements were calculated based on NASCET criteria. COMPARISON STUDY: None. FINDINGS: The aortic arch and proximal great vessels are widely patent. There is no significant stenosis, occlusion, or dissection identified within the bilateral common carotid, internal carotid, or vertebral arteries. IMPRESSION: No significant stenosis, occlusion, or dissection identified within the carotid or vertebral arteries. Electronically signed by: Sherif Otoole M.D. 04/26/2017 5:12 PM Dictated Date/Time: 04/26/2017 5:10 PM
[2017-04-26] MEDS ORDERED: IV FLUIDS COMPLETED PRN (19:00)
[2017-04-26] MEDS ORDERED: MAGNESIUM HYDROXIDE SUSP 30 ML UDC PO PRN (19:00)
[2017-04-26] MEDS ORDERED: ALUMINUM/MAGNESIUM/SIMETH (MAALOX MAX) 30 ML UDC PO PRN (19:00)
[2017-04-26] MEDS ORDERED: PROMETHAZINE HCL 25 MG TAB PO PRN (19:00)
[2017-04-26] MEDS ORDERED: POLYETHYLENE (MIRALAX) 17 GM PACK PO PRN (19:00)
[2017-04-26] MEDS ORDERED: ONDANSETRON INJ 2 MG/ML 2 ML VIAL IV PRN (19:00)
--- NOTE | 2017-04-26 19:04 | History and Physical ---
History & Physical Date & Time of Service: Apr 26, 2017 at 18:54 Chief Complaint: Neck Pain, Severe Dizziness/Disorientation, Wk Leg Primary Care Physician: Elaina Paul History of Present Illness Source: patient, family, clinic records, hospital records This is a 36 year old female with a PMH of bipolar disorder, mood disorder, fibromyalgia, hx. of alcohol abuse with multiple DUIs; now one year clean, presents with a one day history of dizziness; states that she slept at midnight and woke up at 4AM with dizziness. She thought she was just tired, so she went to sleep - she woke up at 10AM and still had the dizziness. States that she felt the room was spinning; does have some ear ache on the L side. No illness recently. No change in medication recently. Denies chest pain or shortness of breath. 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 Has been in [facility] previously for two DUIs, but states she is one year sober. Previous smoking history; but quit about 1-2 years prior. Has a history of pericardial effusion, which resolved on its own. Denies palpitations. In the ER; had head CT and CTA performed and negative. Past Medical/Surgical History Medical Problems: (1) Alcohol dependence Status: Resolved (2) Anxiety Status: Chronic (3) Bipolar 1 disorder Status: Chronic (4) Depression Status: Chronic (5) GERD (gastroesophageal reflux disease) Status: Chronic (6) Tobacco abuse Status: Resolved (7) Vitamin D deficiency Status: Chronic Surgical Problems: (1) Previous section Status: Resolved Social History Problems: (1) Alcohol abuse Status: Chronic Family History FH: cancer FH: diabetes mellitus FH: heart disease FH: lung disease FH: seizures Social History Smoking Status: Former Smoker Drug Use: none Marital Status: in relationship Housing status: lives with family Occupational Status: employed Immunizations History of Influenza Vaccine: Yes History of Tetanus Vaccine?: No History of Pneumococcal: No History of Hepatitis B Vaccine: No Multi-Drug Resistant Organisms History of MDRO: No Allergies Coded Allergies: No Known Allergies (Verified , 04/26/17) Home Medications Scheduled Fluoxetine (Prozac), 60 MG PO QPM Furosemide (Lasix), 40 MG PO QAM Metformin Hcl (Glucophage), 250 MG PO BID Omeprazole (Prilosec), 20 MG PO QAM Potassium Ext Rel (Klor-Con), 10 MEQ PO QAM Ranitidine (Zantac), 150 MG PO HS Trazodone Hcl (Trazodone), 200 MG PO HS Scheduled PRN Meloxicam (Meloxicam), 15 MG PO BID PRN for Pain Promethazine Hcl (Phenergan), 25 MG PO Q6H PRN for Nausea Review of Systems Constitutional: + weakness, + fatigue, No fever, No chills, No sweats, No weight loss Eyes: No worsening of vision, No eye pain, No redness ENT: + problem reported (L ear ache), No hearing loss Respiratory: No cough, No sputum, No shortness of breath, No dyspnea on exertion, No dyspnea at rest, No hemoptysis Cardiovascular: No chest pain, No edema, No palpitations Abdomen: No pain, No nausea, No vomiting, No diarrhea, No constipation, No GI bleeding Musculoskeletal: + joint pain (chronic) Genitourinary - Female: No dysuria, No urinary frequency, No urinary urgency, No urinary incontinence, No urinary retention, No hematuria Neurologic: + weakness, + vertigo, + balance problems, No memory loss, No paralysis, No numbness/tingling Psychiatric: + depression symptoms (controlled with medications), + anxiety, + insomnia (controlled with medications), + substance abuse (Et[place] abuse from 1999 to 2012) Endocrine: + fatigue Hematologic / Lymphatic: No abnormal bleeding/bruising Integumentary: No rash Allergic / Immunologic: No environmental allergies, No seasonal allergies Physical Exam Vital Signs Date Time Temp Pulse Resp B/P (MAP) Pulse Ox O2 Delivery O2 Flow Rate FiO2 04/26/17 18:47 45 16 114/74 96 Room Air 04/26/17 18:32 46 04/26/17 16:40 45 15 114/67 98 Room Air 04/26/17 15:07 54 107/54 54 104/59 71 111/73 04/26/17 14:36 52 04/26/17 14:19 36.5 64 16 106/72 97 Room Air General Appearance: no apparent distress Head: normocephalic, atraumatic Eyes: normal inspection ENT: hearing grossly normal Neck: supple Respiratory/Chest: lungs clear, normal breath sounds, no respiratory distress, no accessory muscle use Cardiovascular: regular rate, rhythm, no edema, no gallop, no JVD, no murmur, normal peripheral pulses Abdomen/GI: normal bowel sounds, non tender, soft Back: no CVA tenderness, no muscle spasm Extremities/Musculoskelatal: no calf tenderness, normal capillary refill, no pedal edema Neurologic/Psych: 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 II-XII nml as tested, no motor/sensory deficits, alert, normal mood/affect, oriented x 3 Skin: normal color Lymphatic: no adenopathy Diagnostics Laboratory Results Results Past 24 Hours Test 04/26/17 15:00 04/26/17 15:08 04/26/17 16:10 Range/Units White Blood Count 4.69 4.8-10.8 K/uL Red Blood Count 4.03 4.2-5.4 M/uL Hemoglobin 11.8 12.0-16.0 g/dL Hematocrit 36.0 37-47 % Mean Corpuscular Volume 89.3 80-100 fL Mean Corpuscular Hemoglobin 29.3 25-34 pg Mean Corpuscular Hemoglobin Concent 32.8 32-36 g/dl Platelet Count 194 130-400 K/uL Mean Platelet Volume 10.1 7.4-10.4 fL Neutrophils (%) (Auto) 54.8 % Lymphocytes (%) (Auto) 38.6 % Monocytes (%) (Auto) 5.8 % Eosinophils (%) (Auto) 0.6 % Basophils (%) (Auto) 0.2 % Neutrophils # (Auto) 2.57 1.4-6.5 K/uL Lymphocytes # (Auto) 1.81 1.2-3.4 K/uL Monocytes # (Auto) 0.27 0.11-0.59 K/uL Eosinophils # (Auto) 0.03 0-0.5 K/uL Basophils # (Auto) 0.01 0-0.2 K/uL RDW Standard Deviation 39.0 36.4-46.3 fL RDW Coefficient of Variation 11.9 11.5-14.5 % Immature Granulocyte % (Auto) 0.0 % Immature Granulocyte # (Auto) 0.00 0.00-0.02 K/uL Sodium Level 142 136-145 mmol/L Potassium Level 3.8 3.5-5.1 mmol/L Chloride Level 110 98-107 mmol/L Carbon Dioxide Level 26 21-32 mmol/L Anion Gap 6.0 3-11 mmol/L Blood Urea Nitrogen 18 7-18 mg/dl Creatinine 0.87 0.60-1.20 mg/dl Est Creatinine Clear Calc Drug Dose 119.9 ml/min Estimated GFR () 99.3 Estimated GFR (Non- 85.7 BUN/Creatinine Ratio 20.6 10-20 Random Glucose 84 70-99 mg/dl Calcium Level 8.7 8.5-10.1 mg/dl Magnesium Level 2.0 1.8-2.4 mg/dl Total Bilirubin 0.1 0.2-1 mg/dl Aspartate Amino Transf (AST/SGOT) 12 15-37 U/L Alanine Aminotransferase (ALT/SGPT) 16 12-78 U/L Alkaline Phosphatase 48 45-117 U/L Total Protein 6.5 6.4-8.2 gm/dl Albumin 3.2 3.4-5.0 gm/dl Globulin 3.3 2.5-4.0 gm/dl Albumin/Globulin Ratio 1.0 0.9-2 Thyroid Stimulating Hormone (TSH) 0.687 0.300-4.500 uIu/ml Lyme Disease IgG Antibody NEG NEG Lyme Disease IgM Antibody NEG NEG Bedside Troponin I < 0.030 0-0.045 ng/ml Urine Color YELLOW Urine Appearance CLEAR CLEAR Urine pH 7.5 4.5-7.5 Urine Specific [place] 1.019 1.000-1.030 Urine Protein NEG NEG Urine Glucose (UA) NEG NEG Urine Ketones NEG NEG Urine Occult Blood NEG NEG Urine Nitrite NEG NEG Urine Bilirubin NEG NEG Urine Urobilinogen NEG NEG Urine Leukocyte Esterase NEG NEG Urine Test NEG NEG Urine Opiates Screen NEG NEG Urine Methadone, Qualitative NEG NEG Urine Barbiturates NEG NEG Urine Phencyclidine (PCP) Level NEG NEG Ur Amphetamine/Methamphetamine NEG NEG MDMA (Ecstasy) Screen POS NEG Urine Benzodiazepines Screen NEG NEG Urine Cocaine Metabolite NEG NEG Urine Marijuana (THC) NEG NEG Diagnostic Radiology HEAD CTA HISTORY: Mental status change headache TECHNIQUE: Multiaxial CT images of the head were performed both before and after the intravenous administration of contrast to evaluate the major cerebral vessels. Maximum intensity projection images were also obtained. COMPARISON: None. FINDINGS: There is no mass, hematoma, midline shift, or acute infarct. Visualized intracranial internal carotid arteries, distal vertebral arteries, and basilar artery are widely patent. There is no significant stenosis, occlusion, or aneurysm seen within the bilateral ACAs, MCAs, or maintenance pipefitter. IMPRESSION: No significant stenosis, occlusion, or aneurysm within the [place]. NECK CTA HISTORY: Mental status change neck pain TECHNIQUE: Multiaxial CT images of the neck were performed following the intravenous administration of contrast to evaluate the major cervical vessels. Maximum intensity projection images were also obtained. All measurements were calculated based on NASCET criteria. COMPARISON STUDY: None. FINDINGS: The aortic arch and proximal great vessels are widely patent. There is no significant stenosis, occlusion, or dissection identified within the bilateral common carotid, internal carotid, or vertebral arteries. IMPRESSION: No significant stenosis, occlusion, or dissection identified within the carotid or vertebral arteries. Impression Assessment and Plan This is a 36 year old female with a PMH of bipolar disorder, mood disorder, fibromyalgia, hx. of alcohol abuse with multiple DUIs; now one year clean, presents with a one day history of dizziness Vertigo patient seems to exhibit typical vertigo symptoms with the room spinning Head and neck CTA performed and negative plan is to admit to tele orthostatics PT for possible Dhruv check an echo (sinus olivia; hx. of pericardial effusion) gentle hydration low sodium diet Sinus Bradycardia unsure of her resting HRs currently HRs in the 40s Lyme is negative TSH is wnl check a resting echo monitor in tele gentle hydration Fibromyalgia continue Lyrica + meloxicam as needed Bipolar/Mood Disorder continue current medications Insomnia on a very high dose of Trazodone, but states she has been on this dose for years monitor this usage, as it may be contributing to her symptoms DVT ppx Lovenox FULL CODE VTE Prophylaxis VTE Risk Assessment Done? Y/N: Yes Risk Level: Low
[2017-04-26] MEDS ORDERED: MELOXICAM 7.5 MG TAB PO PRN (21:00)
[2017-04-26] MEDS ORDERED: SODIUM CHLORIDE 0.9% 1000ML 1,000 ML IV SCH (21:00)
[2017-04-26 21:06] VITALS: BP 105/69; PULSE 49; TEMP 36.9; O2SAT 95; Ht 180.3 cm; Wt 107.6 kg
[2017-04-26 21:10] LABS: PARTIAL THROMBOPLASTIN RATIO 1.1; PROTHROMBIN TIME (PATIENT) 10.2 SECONDS (9.0-12.0)
[2017-04-26] MEDS: FLUOXETINE HCL 20 MG CAP PO SCH (21:40)
[2017-04-26] MEDS: RANITIDINE HCL 150 MG TAB PO SCH (21:40)
[2017-04-26] MEDS: ACETAMINOPHEN 325 MG TAB PO PRN (21:41)
[2017-04-26] MEDS: TRAZODONE HCL 100 MG TAB PO SCH (21:41)
--- NOTE | 2017-04-26 22:30 | EMERGENCY ROOM VISIT NOTE ---
History First contact with patient: 14:30 Chief Complaint: NECK PAIN Stated Complaint: WEAKNESS, GENERALIZED History of Present Illness The patient is a 36 year old female who presents to the Emergency Room with complaints of dizziness for roughly the past with hours. The patient states that she was feeling well yesterday, went to bed around midnight, and woke up around 4 AM with dizziness. She difficulty ambulating to the bathroom, stating that she felt like the room was spinning, and that she had to "ping pong" off her furniture in order to prevent from falling. The patient was able to go back to sleep, and woke up at 10 AM with continued symptoms. She is also complaining of some left-sided neck pain and left-sided head pain. She does not have injury or trauma. She does not report recent flulike symptoms. She has difficulty with ambulation as this exacerbates her symptoms. She is not taken anything [id number] and rates her discomfort a 7/10. Review of Systems More than 10 systems were reviewed and otherwise negative with the exception of history of present illness. Past Medical/Surgical History Medical Problems: (1) Alcohol dependence (2) Anxiety (3) Bipolar 1 disorder (4) Depression (5) GERD (gastroesophageal reflux disease) (6) Tobacco abuse (7) Vitamin D deficiency Surgical Problems: (1) Previous section Social History Problems: (1) Alcohol abuse Family History FH: cancer FH: diabetes mellitus FH: heart disease FH: lung disease FH: seizures Social History Smoking Status: Former Smoker Alcohol Use: other Drug Use: none Marital Status: in relationship Housing Status: lives with significant other Occupation Status: employed Current/Historical Medications Scheduled Fluoxetine (Prozac), 60 MG PO QPM Furosemide (Lasix), 40 MG PO QAM Metformin Hcl (Glucophage), 250 MG PO BID Omeprazole (Prilosec), 20 MG PO QAM Potassium Ext Rel (Klor-Con), 10 MEQ PO QAM Ranitidine (Zantac), 150 MG PO HS Trazodone Hcl (Trazodone), 200 MG PO HS Scheduled PRN Meloxicam (Meloxicam), 15 MG PO BID PRN for Pain Promethazine Hcl (Phenergan), 25 MG PO Q6H PRN for Nausea Allergies Coded Allergies: No Known Allergies (Verified , 04/26/17) Physical Exam Vital Signs Date Time Temp Pulse Resp B/P (MAP) Pulse Ox O2 Delivery O2 Flow Rate FiO2 04/26/17 18:47 45 16 114/74 96 Room Air 04/26/17 18:45 114/74 04/26/17 18:44 45 12 04/26/17 18:32 46 04/26/17 18:14 41 13 04/26/17 17:44 44 9 04/26/17 17:14 49 13 04/26/17 16:40 45 15 114/67 98 Room Air 04/26/17 16:38 114/67 04/26/17 16:14 49 17 04/26/17 15:44 44 12 04/26/17 15:14 43 14 04/26/17 15:09 111/73 04/26/17 15:08 104/59 04/26/17 15:07 107/54 04/26/17 15:07 54 107/54 54 104/59 71 111/73 04/26/17 14:44 49 13 04/26/17 14:36 52 04/26/17 14:19 36.5 64 16 106/72 97 Room Air Pain Rating (0-10): 0 Physical Exam VITALS: Vitals are noted on the nurse's note and reviewed by myself. Vital signs with bradycardia GENERAL: Lethargic-appearing white female who is speaking in slow and deliberate sentences. She is cooperative with the examination. EARS: External ear normal. External auditory canals clear, tympanic membranes pearly vaughn without erythema or effusion bilaterally. EYES: Pupils equal round and reactive to light and accommodation. Conjunctivae without injection, sclerae without icterus. Extraocular movements intact, however there is horizontal nystagmus appreciated. NOSE: Patent, turbinates without inflammation or discharge. MOUTH: Mucous membranes moist. Tonsils are not enlarged. Pharynx without erythema, blood, or exudate. Uvula midline. Airway patent. NECK: Supple without nuchal rigidity. No lymphadenopathy. No thyromegaly. Cervical spine is nontender. HEART: Bradycardic rate and regular rhythm without murmurs gallops or rubs. LUNGS: Clear to auscultation bilaterally without wheezes, rales or rhonchi. No retractions or accessory muscle use. ABDOMEN: Positive normal bowel sounds x 4. Soft, nontender, without masses or organomegaly. No guarding or rebound tenderness. MUSCULOSKELETAL: No muscle atrophy, erythema, or edema noted. Full range of motion without joint tenderness in all extremities. NEURO: Patient was alert and oriented to person place and time. CN II through XII grossly intact. No focal neurological deficits Medical Decision & Procedures ER Provider Diagnostic Interpretation: NECK CTA HISTORY: Mental status change neck pain TECHNIQUE: Multiaxial CT images of the neck were performed following the intravenous administration of contrast to evaluate the major cervical vessels. Maximum intensity projection images were also obtained. All measurements were calculated based on NASCET criteria. COMPARISON STUDY: None. FINDINGS: The aortic arch and proximal great vessels are widely patent. There is no significant stenosis, occlusion, or dissection identified within the bilateral common carotid, internal carotid, or vertebral arteries. IMPRESSION: No significant stenosis, occlusion, or dissection identified within the carotid or vertebral arteries. HEAD CTA HISTORY: Mental status change headache TECHNIQUE: Multiaxial CT images of the head were performed both before and after the intravenous administration of contrast to evaluate the major cerebral vessels. Maximum intensity projection images were also obtained. COMPARISON: None. FINDINGS: There is no mass, hematoma, midline shift, or acute infarct. Visualized intracranial internal carotid arteries, distal vertebral arteries, and basilar artery are widely patent. There is no significant stenosis, occlusion, or aneurysm seen within the bilateral ACAs, MCAs, or burial vault deliverer and installer. IMPRESSION: No significant stenosis, occlusion, or aneurysm within the [place]. Laboratory Results 04/26/17 15:00 Red Blood Count 4.03, Mean Corpuscular Volume 89.3, Mean Corpuscular Hemoglobin 29.3, Mean Corpuscular Hemoglobin Concent 32.8, Mean Platelet Volume 10.1, Neutrophils (%) (Auto) 54.8, Lymphocytes (%) (Auto) 38.6, Monocytes (%) (Auto) 5.8, Eosinophils (%) (Auto) 0.6, Basophils (%) (Auto) 0.2, Neutrophils # (Auto) 2.57, Lymphocytes # (Auto) 1.81, Monocytes # (Auto) 0.27, Eosinophils # (Auto) 0.03, Basophils # (Auto) 0.01 04/26/17 15:00 Test 04/26/17 15:00 04/26/17 15:08 04/26/17 16:10 White Blood Count 4.69 K/uL (4.8-10.8) Red Blood Count 4.03 M/uL (4.2-5.4) Hemoglobin 11.8 g/dL (12.0-16.0) Hematocrit 36.0 % (37-47) Mean Corpuscular Volume 89.3 fL (80-100) Mean Corpuscular Hemoglobin 29.3 pg (25-34) Mean Corpuscular Hemoglobin Concent 32.8 g/dl (32-36) Platelet Count 194 K/uL (130-400) Mean Platelet Volume 10.1 fL (7.4-10.4) Neutrophils (%) (Auto) 54.8 % Lymphocytes (%) (Auto) 38.6 % Monocytes (%) (Auto) 5.8 % Eosinophils (%) (Auto) 0.6 % Basophils (%) (Auto) 0.2 % Neutrophils # (Auto) 2.57 K/uL (1.4-6.5) Lymphocytes # (Auto) 1.81 K/uL (1.2-3.4) Monocytes # (Auto) 0.27 K/uL (0.11-0.59) Eosinophils # (Auto) 0.03 K/uL (0-0.5) Basophils # (Auto) 0.01 K/uL (0-0.2) RDW Standard Deviation 39.0 fL (36.4-46.3) RDW Coefficient of Variation 11.9 % (11.5-14.5) Immature Granulocyte % (Auto) 0.0 % Immature Granulocyte # (Auto) 0.00 K/uL (0.00-0.02) Prothrombin Time 10.2 SECONDS (9.0-12.0) Prothromb Time International Ratio 1.0 (0.9-1.1) Activated Partial Thromboplast Time 28.4 SECONDS (21.0-31.0) Partial Thromboplastin Ratio 1.1 Anion Gap 6.0 mmol/L (3-11) Est Creatinine Clear Calc Drug Dose 119.9 ml/min Estimated GFR () 99.3 Estimated GFR (Non- 85.7 BUN/Creatinine Ratio 20.6 (10-20) Calcium Level 8.7 mg/dl (8.5-10.1) Magnesium Level 2.0 mg/dl (1.8-2.4) Total Bilirubin 0.1 mg/dl (0.2-1) Aspartate Amino Transf (AST/SGOT) 12 U/L (15-37) Alanine Aminotransferase (ALT/SGPT) 16 U/L (12-78) Alkaline Phosphatase 48 U/L (45-117) Total Protein 6.5 gm/dl (6.4-8.2) Albumin 3.2 gm/dl (3.4-5.0) Globulin 3.3 gm/dl (2.5-4.0) Albumin/Globulin Ratio 1.0 (0.9-2) Thyroid Stimulating Hormone (TSH) 0.687 uIu/ml (0.300-4.500) Lyme Disease IgG Antibody NEG (NEG) Lyme Disease IgM Antibody NEG (NEG) Bedside Troponin I < 0.030 ng/ml (0-0.045) Urine Color YELLOW Urine Appearance CLEAR (CLEAR) Urine pH 7.5 (4.5-7.5) Urine Specific [place] 1.019 (1.000-1.030) Urine Protein NEG (NEG) Urine Glucose (UA) NEG (NEG) Urine Ketones NEG (NEG) Urine Occult Blood NEG (NEG) Urine Nitrite NEG (NEG) Urine Bilirubin NEG (NEG) Urine Urobilinogen NEG (NEG) Urine Leukocyte Esterase NEG (NEG) Urine Test NEG (NEG) Urine Opiates Screen NEG (NEG) Urine Methadone, Qualitative NEG (NEG) Urine Barbiturates NEG (NEG) Urine Phencyclidine (PCP) Level NEG (NEG) Ur Amphetamine/Methamphetamine NEG (NEG) MDMA (Ecstasy) Screen POS (NEG) Urine Benzodiazepines Screen NEG (NEG) Urine Cocaine Metabolite NEG (NEG) Urine Marijuana (THC) NEG (NEG) Medications Administered Medications (Trade) Dose Ordered Sig/Abel Route Start Time Stop Time Status Last Admin Dose Admin Sodium Chloride 1,000 ml @ 999 mls/hr Q1H1M ONCE IV 04/26/17 14:45 04/26/17 15:45 DC 04/26/17 15:11 999 MLS/HR Meclizine HCl (Antivert Tab) 25 mg NOW STAT PO 04/26/17 14:42 04/26/17 14:50 DC 04/26/17 15:11 25 MG ECG Change: Sinus bradycardia with sinus arrhythmia @49 bpm RSR' or QR pattern in V1 suggests right ventricular conduction delay Nonspecific T wave abnormality Abnormal ECG When compared with ECG of 05-JAN-2017 11:57, Vent. rate has decreased BY 28 BPM Confirmed by FINN KING MD ([id number]) on 04/26/2017 3:00:04 PM ED Course Physical exam and history were performed. Nursing notes and EMR were reviewed. Patient appears to have dizziness that has been persistent for roughly the past 12 hours. Her symptoms sound vertiginous in nature. She is bradycardic on vital signs, with a rate as low as 40 on the lunchroom monitor. She is not having chest discomfort. IV access was established and labs were obtained. Considering the patient is complaining of some neck and head pain, I have concern that she may be experiencing aneurysm or dissection. Because of this I elect to perform a CT angiogram of her head and neck. Her EKG does show bradycardia. The patient was hydrated and medicated as above. The blood work is as above and was reviewed. She does not have a significantly elevated white blood cell count, gross anemia, bandemia, or significant electrolyte imbalance. TSH shows euthyroid. Lyme is negative. Troponin 1 is negative. Magnesium is within normal limits. Drug of abuse screen was positive for MDMA, however this is likely positive from her antidepressants, and not substance abuse. The CT scans are as above and are without significant acute findings. On reevaluation the patient continued to have vertiginous symptoms. She had difficulty with ambulation even to the bathroom to provide a urine sample. She continued to have episodes of persistent bradycardia, going as low as 40 bpm while here in the department. I'm unsure if the bradycardia is causing her symptoms, or if this is an independent finding. Overall the patient does not appear well for discharge home. I discussed the case with the on-call hospitalist who agreed to evaluate the patient here in the department. Please see their dictation for further patient course, plan, and disposition. The chart was completed utilizing [employer] Speech Voice Recognition Software. Grammatical errors, random word insertions, pronoun errors, and incomplete sentences are an occasional consequence of this system due to software limitations, ambient noise, and hardware issues. Any formal questions or concerns about the content, text, or information contained within the body of this dictation should be directly addressed to the provider for clarification. . Medical Decision Differential diagnosis: Etiologies such as benign positional vertigo, dehydration, hypovolemia, anemia, tumor, infection, hypoglycemia, electrolyte abnormalities, cardiac sources, intracerebral event, toxicologic, neurologic, as well as others were entertained. Impression Primary Impression: Vertigo Additional Impression: Bradycardia Departure Information Dispostion Admitted as an inpatient Condition GOOD Referrals Elaina Paul ADarline P.ADarline (PCP) Forms WORK / SCHOOL INSTRUCTIONS, HOME CARE DOCUMENTATION FORM, IMPORTANT VISIT INFORMATION Patient Instructions [facility] Problem Qualifiers
[2017-04-26] MEDS: ENOXAPARIN 40 MG/0.4 ML SYR SC SCH (22:53)
[2017-04-26 23:00] VITALS: BP 108/72; PULSE 44; TEMP 36.8; O2SAT 96
[2017-04-26 23:02] VITALS: BP 116/81; PULSE 67
[2017-04-26 23:04] VITALS: BP 108/72; PULSE 72
[2017-04-26] MEDS: MECLIZINE HCL 12.5 MG TAB PO PRN (23:27)
[2017-04-27] VITALS (7 sets, daily range): BP systolic 89–111; BP diastolic 57–72; PULSE 43–74; TEMP 36.4–36.9; O2SAT 95–97
[2017-04-27 06:26] LABS: ESTIMATED AVERAGE GLUCOSE 103 mg/dl; HA1C FLAG Normal (Normal)
[2017-04-27 07:36] LABS: MEAN CELL VOLUME 90.9 fL (80-100); MEAN CORPUSCULAR HEMOGLOBIN 29.9 pg (25-34); MEAN CORPUSCULAR HGB CONC 32.9 g/dl (32-36); MEAN PLATELET VOLUME 10.5 fL (7.4-10.4); PLATELET COUNT 190 K/uL (130-400); RED BLOOD COUNT 3.85 M/uL (4.2-5.4); WHITE BLOOD COUNT 4.68 K/uL (4.8-10.8)
[2017-04-27] MEDS: PANTOprazole SOD 40 MG TAB PO SCH (08:07)
[2017-04-27 08:09] LABS: BUN/CREATININE RATIO 21.2 (10-20); CALCIUM 8.3 mg/dl (8.5-10.1); CREATININE 0.86 mg/dl (0.60-1.20); POTASSIUM 3.9 mmol/L (3.5-5.1)
--- NOTE | 2017-04-27 11:09 | Progress Note ---
Internal Med Progress Note Date of Service: Apr 27, 2017. Provider Documentation: SUBJECTIVE: The patient was seen and examined Admitted with and complains of dizziness with any movement of the Neck Has Fibromyalgia and complains of puffiness of the hands,face and legs OBJECTIVE: Vital Signs-as noted below Exam: General-No distress at rest Eyes-normal ENT-normal Neck-supple Lungs-clear to ausucltate bilaterally Heart-Regular,no murmur appreciated Abdomen-Benign,no masses,bowel sound present Extremities-Trace edema bilaterally Neuro-AAOx3 Lab data as noted below. 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 of pericardial effusion) Not any better today Sinus Bradycardia unsure of her resting HRs During admission HRs in the 40s Lyme is negative,TSH is wnl Check a resting echo Monitor in tele Will get an EKG today Fibromyalgia continue Lyrica + meloxicam as needed Bipolar/Mood Disorder continue current medications Insomnia on a very high dose of Trazodone, but states she has been on this dose for years monitor this usage, as it may be contributing to her symptoms DVT ppx Lovenox FULL CODE Vital Signs: Date Time Temp Pulse Resp B/P (MAP) Pulse Ox O2 Delivery O2 Flow Rate FiO2 04/27/17 08:00 Room Air 04/27/17 07:23 36.6 48 16 94/59 (71) 96 Room Air 04/27/17 02:54 36.6 59 15 98/63 (75) 95 Room Air 04/27/17 00:00 96 Room Air 04/26/17 23:04 72 108/72 (84) 04/26/17 23:02 67 18 116/81 (93) 04/26/17 23:00 36.8 44 16 108/72 (84) 96 Room Air 04/26/17 21:06 36.9 49 18 105/69 95 Room Air 04/26/17 20:25 46 16 124/84 94 04/26/17 20:14 50 15 96 04/26/17 19:44 46 12 97 04/26/17 19:25 108/74 04/26/17 19:14 49 15 04/26/17 18:47 45 16 114/74 96 Room Air 04/26/17 18:45 114/74 04/26/17 18:44 45 12 04/26/17 18:32 46 04/26/17 18:14 41 13 04/26/17 17:44 44 9 04/26/17 17:14 49 13 04/26/17 16:40 45 15 114/67 98 Room Air 04/26/17 16:38 114/67 04/26/17 16:14 49 17 04/26/17 15:44 44 12 04/26/17 15:14 43 14 04/26/17 15:09 111/73 04/26/17 15:08 104/59 04/26/17 15:07 107/54 04/26/17 15:07 54 107/54 54 104/59 71 111/73 04/26/17 14:44 49 13 04/26/17 14:36 52 04/26/17 14:19 36.5 64 16 106/72 97 Room Air Lab Results: Results Past 24 Hours Test 04/26/17 15:00 04/26/17 15:08 04/26/17 16:10 04/27/17 07:05 Range/Units White Blood Count 4.69 4.68 4.8-10.8 K/uL Red Blood Count 4.03 3.85 4.2-5.4 M/uL Hemoglobin 11.8 11.5 12.0-16.0 g/dL Hematocrit 36.0 35.0 37-47 % Mean Corpuscular Volume 89.3 90.9 80-100 fL Mean Corpuscular Hemoglobin 29.3 29.9 25-34 pg Mean Corpuscular Hemoglobin Concent 32.8 32.9 32-36 g/dl Platelet Count 194 190 130-400 K/uL Mean Platelet Volume 10.1 10.5 7.4-10.4 fL Neutrophils (%) (Auto) 54.8 % Lymphocytes (%) (Auto) 38.6 % Monocytes (%) (Auto) 5.8 % Eosinophils (%) (Auto) 0.6 % Basophils (%) (Auto) 0.2 % Neutrophils # (Auto) 2.57 1.4-6.5 K/uL Lymphocytes # (Auto) 1.81 1.2-3.4 K/uL Monocytes # (Auto) 0.27 0.11-0.59 K/uL Eosinophils # (Auto) 0.03 0-0.5 K/uL Basophils # (Auto) 0.01 0-0.2 K/uL RDW Standard Deviation 39.0 40.8 36.4-46.3 fL RDW Coefficient of Variation 11.9 12.1 11.5-14.5 % Immature Granulocyte % (Auto) 0.0 % Immature Granulocyte # (Auto) 0.00 0.00-0.02 K/uL Prothrombin Time 10.2 9.0-12.0 SECONDS Prothromb Time International Ratio 1.0 0.9-1.1 Activated Partial Thromboplast Time 28.4 21.0-31.0 SECONDS Partial Thromboplastin Ratio 1.1 Sodium Level 142 145 136-145 mmol/L Potassium Level 3.8 3.9 3.5-5.1 mmol/L Chloride Level 110 114 98-107 mmol/L Carbon Dioxide Level 26 27 21-32 mmol/L Anion Gap 6.0 4.0 3-11 mmol/L Blood Urea Nitrogen 18 18 7-18 mg/dl Creatinine 0.87 0.86 0.60-1.20 mg/dl Est Creatinine Clear Calc Drug Dose 119.9 119.4 ml/min Estimated GFR () 99.3 100.7 Estimated GFR (Non- 85.7 86.9 BUN/Creatinine Ratio 20.6 21.2 10-20 Random Glucose 84 89 70-99 mg/dl Estimated Average Glucose 103 mg/dl Hemoglobin A1c 5.2 4.5-5.6 % Calcium Level 8.7 8.3 8.5-10.1 mg/dl Magnesium Level 2.0 1.8-2.4 mg/dl Total Bilirubin 0.1 0.2-1 mg/dl Aspartate Amino Transf (AST/SGOT) 12 15-37 U/L Alanine Aminotransferase (ALT/SGPT) 16 12-78 U/L Alkaline Phosphatase 48 45-117 U/L Total Protein 6.5 6.4-8.2 gm/dl Albumin 3.2 3.4-5.0 gm/dl Globulin 3.3 2.5-4.0 gm/dl Albumin/Globulin Ratio 1.0 0.9-2 Thyroid Stimulating Hormone (TSH) 0.687 0.300-4.500 uIu/ml Lyme Disease IgG Antibody NEG NEG Lyme Disease IgM Antibody NEG NEG Bedside Troponin I < 0.030 0-0.045 ng/ml Urine Color YELLOW Urine Appearance CLEAR CLEAR Urine pH 7.5 4.5-7.5 Urine Specific [place] 1.019 1.000-1.030 Urine Protein NEG NEG Urine Glucose (UA) NEG NEG Urine Ketones NEG NEG Urine Occult Blood NEG NEG Urine Nitrite NEG NEG Urine Bilirubin NEG NEG Urine Urobilinogen NEG NEG Urine Leukocyte Esterase NEG NEG Urine Test NEG NEG Urine Opiates Screen NEG NEG Urine Methadone, Qualitative NEG NEG Urine Barbiturates NEG NEG Urine Phencyclidine (PCP) Level NEG NEG Ur Amphetamine/Methamphetamine NEG NEG MDMA (Ecstasy) Screen POS NEG Urine Benzodiazepines Screen NEG NEG Urine Cocaine Metabolite NEG NEG Urine Marijuana (THC) NEG NEG
--- NOTE | 2017-04-27 14:36 | ECHOCARDIOGRAM REPORT ---
*NOTICE TO RECEIVING REPUBLICAN AGENCY This information is strictly Confidential and protected under [place] law. [place] law prohibits you from making any further disclosure of this information unless further disclosure is expressly permitted by the written consent of the person to whom it pertains or is authorized by law. A general authorization for the release of medical or other information is not sufficient for this purpose. Hospital accepts no responsibility if the information is made available to any other person, INCLUDING THE PATIENT. Interpretation Summary * Name: TEVIN JEREZ Study Date: 04/27/2017 07:50 AM BP: 98/63 mmHg * Patient Location: C.2T\S\S240\S\1 HR: 38 * : 1980 (M/d/yyyy) Gender: Female Height: 70 in * Age: 36 yrs Ethnicity: [place] Weight: 234 lb * Ordering Physician: Erwin Draper * Referring Physician: Self, Referred * Performed By: Shantanu Wright RCS * * Reason For Study: Dizziness, Hx of Pericardial Effusion * BSA: 2.2 m2 * -- Conclusions -- * Small, loculated pericardial effusion adjacent to the left atrium, no hemodynamic signficance. * Normal LV chamber size and wall thickness. * Normal LV systolic function, EF 55-60%. * No segmental left ventricular wall motion abnormalities are noted. * Normal diastolic function. * No significant valvular pathology. Procedure Details * Left Ventricle The left ventricle is normal in size. There is normal left ventricular wall thickness. Ejection Fraction = 55-60%. Left ventricular systolic function is normal. No segmental left ventricular wall motion abnormalities are noted. The left ventricular wall motion is normal. * Right Ventricle The right ventricular cavity size is normal (basal dimension <4.2 cm in right ventricular apical 4-chamber view). The right ventricular systolic function is normal as assessed by tricuspid annular plane systolic excursion (TAPSE) (normal >1.5 cm). * Atria The left atrial size is normal. Right atrial size is normal. No ASD detected; PFO is not assessed. * Mitral Valve The mitral valve is normal in structure and function. * Tricuspid Valve The tricuspid valve is normal in structure and function. * Aortic Valve The aortic valve is not well visualized. No hemodynamically significant valvular aortic stenosis. There is no significant aortic regurgitation. * Pulmonic Valve The pulmonary valve is not well seen, but the Doppler examination is normal without significant regurgitation or stenosis. * Great Vessels The aortic root is normal size. * Pericardium/Pleural Small, loculated pericardial effusion adjacent to the left atrium, no hemodynamic signficance. * Left Ventricular Diastolic Function Pulse wave TDI of the anterior and posterior mitral annulas demonstrates normal LV relaxation * * MMode 2D Measurements and Calculations * IVSd 0.79 cm * * LVIDd 5.7 cm * LVIDs 4.0 cm * LVPWd 0.86 cm * * IVS/LVPW 0.92 * FS 29.7 % * EDV(Teich) 157.3 ml * ESV(Teich) 68.9 ml * EF(Teich) 56.2 % * * EDV(cubed) 181.1 ml * ESV(cubed) 62.8 ml * EF(cubed) 65.3 % * * LV mass(C)d 173.5 grams * LV mass(C)dI 77.7 grams/m\S\2 * * SV(Teich) 88.4 ml * SI(Teich) 39.6 ml/m\S\2 * SV(cubed) 118.3 ml * SI(cubed) 53.0 ml/m\S\2 * * Ao root diam 3.1 cm * Ao root area 7.7 cm\S\2 * * LVOT diam 2.1 cm * LVOT area 3.6 cm\S\2 * * LVAd ap4 41.4 cm\S\2 * LVLd ap4 9.5 cm * EDV(MOD-sp4) 147.1 ml * EDV(sp4-el) 153.9 ml * LVAs ap4 21.0 cm\S\2 * LVLs ap4 7.3 cm * ESV(MOD-sp4) 52.0 ml * ESV(sp4-el) 51.5 ml * EF(MOD-sp4) 64.6 % * EF(sp4-el) 66.6 % * * LVAd ap2 31.8 cm\S\2 * LVLd ap2 9.3 cm * EDV(MOD-sp2) 89.3 ml * EDV(sp2-el) 92.4 ml * LVAs ap2 19.1 cm\S\2 * LVLs ap2 7.7 cm * ESV(MOD-sp2) 40.2 ml * ESV(sp2-el) 40.0 ml * EF(MOD-sp2) 55.0 % * EF(sp2-el) 56.8 % * * LVLd %diff -2.11 % * EDV(MOD-bp) 117.5 ml * LVLs %diff 5.6 % * ESV(MOD-bp) 46.7 ml * EF(MOD-bp) 60.3 % * * SV(MOD-sp4) 95.1 ml * SI(MOD-sp4) 42.6 ml/m\S\2 * * SV(MOD-sp2) 49.1 ml * SI(MOD-sp2) 22.0 ml/m\S\2 * * SV(MOD-bp) 70.9 ml * SI(MOD-bp) 31.8 ml/m\S\2 * * SV(sp4-el) 102.5 ml * SI(sp4-el) 45.9 ml/m\S\2 * * SV(sp2-el) 52.5 ml * SI(sp2-el) 23.5 ml/m\S\2 * * * Doppler Measurements and Calculations * MV E max maximo 95.8 cm/sec * MV A max maximo 28.1 cm/sec * * MV E/A 3.4 * * MV dec time 0.20 sec * * *
[2017-04-27] MEDS: KETOROLAC TROMETHAMINE 15 MG/ML VIAL IV PRN (17:27)
[2017-04-27] MEDS: TRAZODONE HCL 100 MG TAB PO SCH (20:56)
[2017-04-27] MEDS: RANITIDINE HCL 150 MG TAB PO SCH (20:56)
[2017-04-27] MEDS: FLUOXETINE HCL 20 MG CAP PO SCH (20:56)
[2017-04-27] MEDS: ENOXAPARIN 40 MG/0.4 ML SYR SC SCH (20:57)
[2017-04-27] MEDS: ACETAMINOPHEN 325 MG TAB PO PRN (20:58)
[2017-04-28] VITALS (7 sets, daily range): BP systolic 97–109; BP diastolic 56–74; PULSE 40–84; TEMP 36.6–36.8; O2SAT 95–98
[2017-04-28] MEDS: PANTOprazole SOD 40 MG TAB PO SCH (08:30)
--- NOTE | 2017-04-28 09:44 | Progress Note ---
Internal Med Progress Note Date of Service: Apr 28, 2017. Provider Documentation: SUBJECTIVE: The patient was seen and examined Admitted with and complains of dizziness with any movement of the Neck Has Fibromyalgia and complains of puffiness of the hands,face and legs Complains of Ongoing Dizziness on any movement of the Neck Requiring Walker to move around Also complains of both TMJ joint pain OBJECTIVE: Vital Signs-as noted below Exam: General-No distress at rest Has tenderness in bilateral TMJ joints tenderness .R>L Eyes-normal ENT-normal Neck-supple Lungs-clear to ausucltate bilaterally Heart-Regular,no murmur appreciated Abdomen-Benign,no masses,bowel sound present Extremities-Trace edema bilaterally Neuro-AAOx3 Lab data as noted below. 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 of pericardial effusion):: Small, loculated pericardial effusion adjacent to the left atrium, no hemodynamic signficance. * Normal LV chamber size and wall thickness. * Normal LV systolic function, EF 55-60%. * No segmental left ventricular wall motion abnormalities are noted. * Normal diastolic function. * No significant valvular pathology. Dhruv maneuver did not help and Meclizine is not helpful either Dizziness is worse Will consult Neurology Sinus Bradycardia unsure of her resting HRs During admission HRs in the 40s Lyme is negative,TSH is wnl Check a resting echo Monitor in tele Will get an EKG today -remains in Sinus Olivia ~50s Fibromyalgia continue Lyrica + meloxicam as needed Toradol injection as needed No Narcotics Bipolar/Mood Disorder Continue current medications Insomnia on a very high dose of Trazodone, but states she has been on this dose for years monitor this usage, as it may be contributing to her symptoms DVT ppx Lovenox FULL CODE Vital Signs: Date Time Temp Pulse Resp B/P (MAP) Pulse Ox O2 Delivery O2 Flow Rate FiO2 04/28/17 08:00 Room Air 04/28/17 07:59 36.6 84 18 101/66 (78) 96 04/28/17 04:08 36.6 40 16 108/70 (83) 95 Room Air 04/28/17 04:00 Room Air 04/28/17 00:00 Room Air 04/27/17 23:48 36.9 43 18 98/64 (75) 96 Room Air 04/27/17 20:00 Room Air 04/27/17 19:25 36.7 74 18 111/72 (85) 97 Room Air 04/27/17 16:00 Room Air 04/27/17 15:13 36.4 49 18 89/57 (68) 95 Room Air 04/27/17 12:00 Room Air 04/27/17 11:11 36.8 58 16 100/65 (77) 96 Room Air
[2017-04-28] MEDS: KETOROLAC TROMETHAMINE 15 MG/ML VIAL IV PRN ×2 (15:48→22:33)
--- NOTE | 2017-04-28 16:04 | Neurology Consultation ---
Neurology Consultation Date of Consultation: Apr 28, 2017. Attending Physician: Sherry Ortiz M.D. Primary Care Physician: Elaina Paul Reason for Consultation: intractable dizziness History of Present Illness Source: patient Joan is a 36 year old female with a PMH of bipolar disorder, mood disorder, fibromyalgia, hx. of alcohol abuse with multiple DUIs and in nursing home previously for the two DUIs. now 11 months clean, presents with a one day history of dizziness; states that she slept at midnight and woke up at 4AM with dizziness. She thought she was just tired, so she went to sleep - she woke up at 10AM and still had the dizziness. States that she felt the room was spinning; does have some ear ache and neck pain on the left side into her shoulder. No change in medication recently. 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 Previous smoking history; but quit about 1-2 years prior. no other drugs, no new or changed medications. Has a history of pericardial effusion, which resolved on its own. Denies vision changes, headache, weakness, CP, SOB, abdominal pain, earing loss , vomiting, bowel or bladder issues. PT came and did an Dhruv maneuver which helped temporarily. She also has take meclizine which was not helpful. 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 (16) Vertigo Status: Acute (17) Vomiting Status: Acute (18) Weakness Status: Acute Social History Smoking Status: Current some day smoker Drug Use: none Marital Status: in relationship Housing Status: lives with significant other Occupation Status: employed Allergies Coded Allergies: No Known Allergies (Verified , 04/26/17) Current Inpatient Medications Current Inpatient Medications Medications (Trade) Dose Ordered Sig/Abel Route Start Time Stop Time Status Last Admin Dose Admin Ioversol (Optiray 320) 125 ml UD PRN IV 04/26/17 15:00 04/30/17 14:59 Enoxaparin Sodium (Lovenox Inj) 40 mg Q24H SC 04/26/17 21:00 05/26/17 20:59 04/27/17 20:57 40 MG Acetaminophen (Tylenol Tab) 650 mg Q4H PRN PO 04/26/17 19:00 05/26/17 18:59 04/27/17 20:58 650 MG Al Hydrox/Mg Hydrox/Simethicone (Maalox Max Susp) 15 ml Q4H PRN PO 04/26/17 19:00 05/26/17 18:59 Magnesium Hydroxide (Milk Of Magnesia Susp) 30 ml Q12H PRN PO 04/26/17 19:00 05/26/17 18:59 Ondansetron HCl (Zofran Inj) 4 mg Q6H PRN IV 04/26/17 19:00 05/26/17 18:59 Polyethylene (Miralax Powder Packet) 17 gm DAILY PRN PO 04/26/17 19:00 05/26/17 18:59 Meclizine HCl (Antivert Tab) 12.5 mg TID PRN PO 04/26/17 19:00 05/26/17 18:59 04/26/17 23:27 12.5 MG Fluoxetine HCl (Prozac Cap) 60 mg QPM PO 04/26/17 21:00 05/26/17 20:59 04/27/17 20:56 60 MG Promethazine HCl (Phenergan Tab) 25 mg Q6H PRN PO 04/26/17 19:00 05/26/17 18:59 Ranitidine HCl (zANTac TAB) 150 mg HS PO 04/26/17 21:00 05/26/17 20:59 04/27/17 20:56 150 MG Trazodone HCl (Desyrel Tab) 200 mg HS PO 04/26/17 21:00 05/26/17 20:59 04/27/17 20:56 200 MG Meloxicam (Mobic Tab) 15 mg BID PRN PO 04/26/17 21:00 05/26/17 20:59 04/26/17 21:40 15 MG Pantoprazole Sodium (Protonix Tab) 40 mg QAM PO 04/27/17 09:00 05/27/17 08:59 04/28/17 08:30 40 MG Miscellaneous (Iv Fluids Completed) 1 ea PRN PRN N/A 04/26/17 19:00 04/26/18 18:59 Ketorolac Tromethamine (Toradol Inj) 15 mg Q6H PRN IV 04/27/17 16:45 05/02/17 16:44 04/28/17 15:48 15 MG Diclofenac Sodium (Voltaren 1% Top Gel) 1 appln BID EXT 04/28/17 21:00 05/28/17 20:59 Physical Exam Vital Signs (Past 24 Hrs): Date Time Temp Pulse Resp B/P (MAP) Pulse Ox O2 Delivery O2 Flow Rate FiO2 04/28/17 14:31 62 98 04/28/17 11:28 Room Air 04/28/17 11:20 62 18 103/63 (76) 98 Room Air 04/28/17 08:00 Room Air 04/28/17 07:59 36.6 84 18 101/66 (78) 96 04/28/17 04:08 36.6 40 16 108/70 (83) 95 Room Air 04/28/17 04:00 Room Air 04/28/17 00:00 Room Air 04/27/17 23:48 36.9 43 18 98/64 (75) 96 Room Air 04/27/17 20:00 Room Air 04/27/17 19:25 36.7 74 18 111/72 (85) 97 Room Air 04/27/17 16:00 Room Air Physical Exam: Constitutional: appearance nourished, healthy and obese Ears, Nose, Mouth and Throat: mucous membranes moist, no injection and skin normal, eyes normal Cardiovascular: normal S-1 and S-2 and regular rate and rhythm Respiratory: clear to auscultation (CTA) and no rales, ronchi or wheeze Musculoskeletal: no peripheral edema and good distal pulses Skin: no stigmata of neurocutaneous disease noted and normal and intact Eyes: extraocular muscles intact (EOMI) and pupils equal, round and reactive to light (PERRL) NEUROLOGIC EXAMINATION: Mental status: Alert and interactive Oriented to full date and location Oriented to person Speech fluent with no evidence of aphasia Cranial Nerves Normal findings for Cranial Nerves II - XII Reflexes: Deep tendon reflexes were symmetrical and graded 2/5. Plantar responses were flexor. Sensory: no sensory deficits Coordination: Romberg absent Gait/Stance: Posture normal. Gait normal: with steady with steps, base, turning, heel and toe walking and tandem gait. Motor: Negative for pronator drift of out stretched arms with eyes closed. Strength: Normal - 5/5 all extremities Laboratory Results Past 24 Hours: no new labs Imaging CTA neck -No significant stenosis, occlusion, or dissection identified within the carotid or vertebral arteries. CTA head- No significant stenosis, occlusion, or aneurysm within the [place]. Impression 36 year old female new sudden onset dizziness/room spinning Plan 1. Dhruv maneuver did help would repeat if not completely resolved in hospital would refer to balance center in [place] 2. MRI brain with and without contrast - r/o central cause vertigo, include IACs 3. fall precautions 4. further recommendations after MRI is completed I have seen and discussed above patient with Dr Jac Wang, neurology Patient seen interviewed and examined and case discussed with [place] ANDERSON C Suspect an acute likely left vestibulopathy but needs mri with and without contrast to exclude other potential causes even though exam and history are more consistent with a peripheral process CTA negative for dissection and intracranial steonses but we clearly need to evaluate the brain parenchyma in the posterior fossa and craniocervical junction Cause of the left retromastoid infraauricular pain not clear and mri may help evaluate this as well ( possible mastoid inflammation but doubt it clinically ) We will follow up and suspect that she wiil need ent to assess Jac Wang MD
[2017-04-28] MEDS: DICLOFENAC SOD 1% GEL 100 GM TUBE EXT SCH (21:00)
[2017-04-28] MEDS ORDERED: GADAVIST IV PRN (22:15)
[2017-04-28] MEDS: RANITIDINE HCL 150 MG TAB PO SCH (22:32)
[2017-04-28] MEDS: TRAZODONE HCL 100 MG TAB PO SCH (22:32)
[2017-04-28] MEDS: FLUOXETINE HCL 20 MG CAP PO SCH (22:33)
[2017-04-28] MEDS: ENOXAPARIN 40 MG/0.4 ML SYR SC SCH (22:33)
--- NOTE | 2017-04-28 23:20 | DIAGNOSTIC IMAGING REPORT ---
BRAIN COMBO FOR IAC CLINICAL HISTORY: Sudden onset intractable dizziness. Weakness. COMPARISON STUDY: CTA of the head and neck April 26, 2017. TECHNIQUE: Utilizing 1.5 [place] magnet, multiplanar, multi echo imaging of the brain was performed pre and postcontrast administration with thin cut imaging through the internal auditory canals. Injection of 10 cc of Gadavist IV was uneventful. FINDINGS: There are no areas of restricted diffusion. No acute intracranial hemorrhage, midline shift or mass effect is present. Brain findings normal. Ventricular system is normal. Basilar cisterns are patent. Flow-voids for the major intracranial vessels are present. There is no intracranial mass or pathologic enhancement. There are no masses or abnormal enhancement within the internal auditory canals. Semicircular canals are intact. There is no fluid within mastoid air cells. A few punctate foci of white matter signal abnormality are of doubtful significance. Calvarial signal is normal. Orbits and sinuses are unremarkable. IMPRESSION: Unremarkable MRI of the brain and internal auditory canals. Electronically signed by: Biju Larkin M.D. 04/28/2017 11:18 PM Dictated Date/Time: 04/28/2017 11:12 PM
[2017-04-29 04:00] VITALS: O2SAT 98
[2017-04-29 04:08] VITALS: BP 98/63; PULSE 48; TEMP 37; O2SAT 98
[2017-04-29 06:54] LABS: MEAN CELL VOLUME 89.7 fL (80-100); MEAN CORPUSCULAR HEMOGLOBIN 29.7 pg (25-34); MEAN CORPUSCULAR HGB CONC 33.1 g/dl (32-36); MEAN PLATELET VOLUME 10.2 fL (7.4-10.4); PLATELET COUNT 170 K/uL (130-400); WHITE BLOOD COUNT 5.97 K/uL (4.8-10.8)
[2017-04-29 07:14] LABS: CREATININE 0.79 mg/dl (0.60-1.20)
[2017-04-29 07:41] VITALS: BP 109/71; PULSE 46; TEMP 36.8; O2SAT 95
[2017-04-29] MEDS: PANTOprazole SOD 40 MG TAB PO SCH (08:06)
[2017-04-29] MEDS: DICLOFENAC SOD 1% GEL 100 GM TUBE EXT SCH (08:06)
[2017-04-29] MEDS: MECLIZINE HCL 12.5 MG TAB PO PRN (10:58)
[2017-04-29] MEDS: KETOROLAC TROMETHAMINE 15 MG/ML VIAL IV PRN ×2 (10:59→17:07)
[2017-04-29 11:12] VITALS: BP 111/69; PULSE 45; TEMP 36.8; O2SAT 97
--- NOTE | 2017-04-29 11:43 | Progress Note ---
Internal Med Progress Note Date of Service: Apr 29, 2017. Provider Documentation: SUBJECTIVE: The patient was seen and examined Admitted with and complains of dizziness with any movement of the Neck Has Fibromyalgia and complains of puffiness of the hands,face and legs Complains of Ongoing Dizziness on any movement of the Neck Requiring Walker to move around Remains stable to be discharged OBJECTIVE: Vital Signs-as noted below Exam: General-No distress at rest Has tenderness in bilateral TMJ joints tenderness .R>L Eyes-normal ENT-normal Neck-supple Lungs-clear to ausucltate bilaterally Heart-Regular,no murmur appreciated Abdomen-Benign,no masses,bowel sound present Extremities-Trace edema bilaterally Neuro-AAOx3 Lab data as noted below. 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 of pericardial effusion):: Small, loculated pericardial effusion adjacent to the left atrium, no hemodynamic signficance. * Normal LV chamber size and wall thickness. * Normal LV systolic function, EF 55-60%. * No segmental left ventricular wall motion abnormalities are noted. * Normal diastolic function. * No significant valvular pathology. Dhruv maneuver did not help and Meclizine is not helpful either Dizziness is persisting-will try Meclizine PRN Will consult Neurology -appreciate Input MRI of the Brain -negative Discussed with cardiology -will get an OP Walking stress test to see the response of Heart rate to activity Sinus Bradycardia unsure of her resting HRs During admission HRs in the 40s Lyme is negative,TSH is wnl Check a resting echo Monitor in tele Will get an EKG today -remains in Sinus Olivia ~50s No acute fingings Fibromyalgia continue Lyrica + meloxicam as needed Toradol injection as needed No Narcotics Bipolar/Mood Disorder Continue current medications Insomnia on a very high dose of Trazodone, but states she has been on this dose for years monitor this usage, as it may be contributing to her symptoms DVT ppx Lovenox FULL CODE Vital Signs: Date Time Temp Pulse Resp B/P (MAP) Pulse Ox O2 Delivery O2 Flow Rate FiO2 04/29/17 08:00 Room Air 04/29/17 07:41 36.8 46 16 109/71 (84) 95 Room Air 04/29/17 04:08 37.0 48 20 98/63 (75) 98 Room Air 04/29/17 04:00 98 Room Air 04/28/17 23:59 Room Air 04/28/17 23:17 36.6 44 22 97/56 (70) 96 Room Air 04/28/17 20:00 Room Air 04/28/17 19:38 36.8 45 18 109/74 (86) 95 Room Air 04/28/17 16:00 Room Air 04/28/17 15:33 36.7 50 20 107/69 (82) 97 Room Air 04/28/17 14:31 62 98 Lab Results: Results Past 24 Hours Test 04/29/17 06:43 Range/Units White Blood Count 5.97 4.8-10.8 K/uL Red Blood Count 3.90 4.2-5.4 M/uL Hemoglobin 11.6 12.0-16.0 g/dL Hematocrit 35.0 37-47 % Mean Corpuscular Volume 89.7 80-100 fL Mean Corpuscular Hemoglobin 29.7 25-34 pg Mean Corpuscular Hemoglobin Concent 33.1 32-36 g/dl RDW Standard Deviation 38.9 36.4-46.3 fL RDW Coefficient of Variation 11.9 11.5-14.5 % Platelet Count 170 130-400 K/uL Mean Platelet Volume 10.2 7.4-10.4 fL Creatinine 0.79 0.60-1.20 mg/dl Est Creatinine Clear Calc Drug Dose 132.9 ml/min Estimated GFR () 111.6 Estimated GFR (Non- 96.3
--- NOTE | 2017-04-29 14:01 | Neurology Progress Notes ---
Neurology Progress Note Date of Service Apr 29, 2017. Kareen Franco is a 36 year old female with a PMH of bipolar disorder, mood disorder, fibromyalgia, hx. of alcohol abuse with multiple DUIs and in group home previously for the two DUIs. now 11 months clean, presents with a one day history of dizziness; states that she slept at midnight and woke up at 4AM with dizziness. She thought she was just tired, so she went to sleep - she woke up at 10AM and still had the dizziness. States that she felt the room was spinning; does have some ear ache and neck pain on the left side into her shoulder. No change in medication recently. 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 Previous smoking history; but quit about 1-2 years prior. no other drugs, no new or changed medications. Has a history of pericardial effusion, which resolved on its own. Denies vision changes, headache, weakness, CP, SOB, abdominal pain, earing loss , vomiting, bowel or bladder issues. PT came and did an Dhruv maneuver which helped temporarily. She also has take meclizine which was not helpful. Today she thinks its about the same. she is being discharged home with a walker for stability. discussed the MRI was negative and she should be seen by ENT and balance clinic for further evaluation and treatment. denies CP, SOB, abdominal pain, weakness, numbness tingling, double vision, N, V Objective Date Time Temp Pulse Resp B/P (MAP) Pulse Ox O2 Delivery O2 Flow Rate FiO2 04/29/17 12:05 Room Air 04/29/17 11:12 36.8 45 16 111/69 (83) 97 Room Air 04/29/17 08:00 Room Air 04/29/17 07:41 36.8 46 16 109/71 (84) 95 Room Air 04/29/17 04:08 37.0 48 20 98/63 (75) 98 Room Air 04/29/17 04:00 98 Room Air 04/28/17 23:59 Room Air 04/28/17 23:17 36.6 44 22 97/56 (70) 96 Room Air 04/28/17 20:00 Room Air 04/28/17 19:38 36.8 45 18 109/74 (86) 95 Room Air 04/28/17 16:00 Room Air 04/28/17 15:33 36.7 50 20 107/69 (82) 97 Room Air 04/28/17 14:31 62 98 Last 24 Hours Test 04/29/17 06:43 White Blood Count 5.97 K/uL Red Blood Count 3.90 M/uL Hemoglobin 11.6 g/dL Hematocrit 35.0 % Mean Corpuscular Volume 89.7 fL Mean Corpuscular Hemoglobin 29.7 pg Mean Corpuscular Hemoglobin Concent 33.1 g/dl RDW Standard Deviation 38.9 fL RDW Coefficient of Variation 11.9 % Platelet Count 170 K/uL Mean Platelet Volume 10.2 fL Creatinine 0.79 mg/dl Est Creatinine Clear Calc Drug Dose 132.9 ml/min Estimated GFR () 111.6 Estimated GFR (Non- 96.3 Imaging: no new imaging Exam: Physical Exam: Constitutional: appearance nourished, healthy and normal Ears, Nose, Mouth and Throat: mucous membranes moist, no injection and skin normal, eyes normal Cardiovascular: normal S-1 and S-2 and regular rate and rhythm Respiratory: clear to auscultation (CTA) and no rales, rhonchi or wheeze Musculoskeletal: no peripheral edema and good distal pulses Skin: no stigmata of neurocutaneous disease noted and normal and intact Eyes: extraocular muscles intact (EOMI) and pupils equal, round and reactive to light (PERRL) NEUROLOGIC EXAMINATION: Mental status: Alert and interactive Oriented to full date and location Oriented to person Speech fluent with no evidence of aphasia Cranial Nerves smile eye brow raise symmetric, tongue midline Gait/Stance: Posture sitting up in bed. Motor: Negative for pronator drift of out stretched arms with eyes closed. Strength: biceps triceps deltoids hand pediatric hospitalist 5/5 bilaterally, hip flex plantar flex ext 5/ 5 bilaterally Current Inpatient Medications Medications (Trade) Dose Ordered Sig/Abel Route Start Time Stop Time Status Last Admin Dose Admin Ioversol (Optiray 320) 125 ml UD PRN IV 04/26/17 15:00 04/30/17 14:59 Enoxaparin Sodium (Lovenox Inj) 40 mg Q24H SC 04/26/17 21:00 05/26/17 20:59 04/28/17 22:33 40 MG Acetaminophen (Tylenol Tab) 650 mg Q4H PRN PO 04/26/17 19:00 05/26/17 18:59 04/27/17 20:58 650 MG Al Hydrox/Mg Hydrox/Simethicone (Maalox Max Susp) 15 ml Q4H PRN PO 04/26/17 19:00 05/26/17 18:59 Magnesium Hydroxide (Milk Of Magnesia Susp) 30 ml Q12H PRN PO 04/26/17 19:00 05/26/17 18:59 Ondansetron HCl (Zofran Inj) 4 mg Q6H PRN IV 04/26/17 19:00 05/26/17 18:59 Polyethylene (Miralax Powder Packet) 17 gm DAILY PRN PO 04/26/17 19:00 05/26/17 18:59 Meclizine HCl (Antivert Tab) 12.5 mg TID PRN PO 04/26/17 19:00 05/26/17 18:59 04/29/17 10:58 12.5 MG Fluoxetine HCl (Prozac Cap) 60 mg QPM PO 04/26/17 21:00 05/26/17 20:59 04/28/17 22:33 60 MG Promethazine HCl (Phenergan Tab) 25 mg Q6H PRN PO 04/26/17 19:00 05/26/17 18:59 Ranitidine HCl (zANTac TAB) 150 mg HS PO 04/26/17 21:00 05/26/17 20:59 04/28/17 22:32 150 MG Trazodone HCl (Desyrel Tab) 200 mg HS PO 04/26/17 21:00 05/26/17 20:59 04/28/17 22:32 200 MG Meloxicam (Mobic Tab) 15 mg BID PRN PO 04/26/17 21:00 05/26/17 20:59 04/26/17 21:40 15 MG Pantoprazole Sodium (Protonix Tab) 40 mg QAM PO 04/27/17 09:00 05/27/17 08:59 04/29/17 08:06 40 MG Miscellaneous (Iv Fluids Completed) 1 ea PRN PRN N/A 04/26/17 19:00 04/26/18 18:59 Ketorolac Tromethamine (Toradol Inj) 15 mg Q6H PRN IV 04/27/17 16:45 05/02/17 16:44 04/29/17 10:59 15 MG Diclofenac Sodium (Voltaren 1% Top Gel) 1 appln BID EXT 04/28/17 21:00 05/28/17 20:59 04/29/17 08:06 1 APPLN Gadobutrol (Gadavist) 10 mmol UD PRN IV 04/28/17 22:15 05/02/17 22:14 Impression 36 year old female new sudden onset dizziness/room spinning Plan 1. Dhruv maneuver did help would repeat if not completely resolved in hospital would refer to balance center in [place] 2. MRI brain with and without contrast - r/o central cause vertigo, include IACs - imaging was normal 3. fall precautions 4. referral to ENT and balance clinic would be helpful for further evaluation and treatment. She is agreeable to go to [place] if no other balance clinic can be arranged in the [place] area. 5. no further follow up with neurology is needed at this time. will see her PRN if needed I have seen and discussed above patient with Dr Jac Wang, neurology Patient seen and evaluated mri reviewed and actual images seen No clear neurological basis for the vertigo so suspect a primary vestibulopathy and would recommend outpatient ent or balance center evaluation and continuing antivert at present until ent recommendations are clear Jac Wang MD
[2017-04-29 15:37] VITALS: BP 108/60; PULSE 43; TEMP 36.7; O2SAT 96
[2017-04-29] MEDS ORDERED: VLTG EXT (15:40)
[2017-04-29] MEDS ORDERED: ANT25 PO (15:40)
--- NOTE | 2017-04-29 15:48 | Discharge Instructions ---
Discharge Instructions Date of Service Apr 29, 2017. Admission Reason for Admission: Weakness, Generalized Discharge Discharge Diagnosis / Problem: Dizziness Discharge Goals Goal(s): Prevent Disease Progression Activity Recommendations Activity Limitations: resume your previous activity Please take precaution to avoid fall . Instructions / Follow-Up Instructions / Follow-Up Dr Martins on 05/06/17 at 10:45 AM.Will need ENT referral.Will need Walking treadmill test in 2 -3 weeks Current Hospital Diet Patient's current hospital diet: Regular Diet Discharge Diet Recommended Diet: Regular Diet Pending Studies Studies pending at discharge: no Laboratory Results Hemoglobin A1c Test 04/26/17 15:00 Range/Units Estimated Average Glucose 103 mg/dl Hemoglobin A1c 5.2 4.5-5.6 % Medical Emergencies . Who to Call and When: Medical Emergencies: If at any time you feel your situation is an emergency, please call 911 immediately. . Non-Emergent Contact Non-Emergency issues call your: Primary Care Provider . Past History Medical & Surgical History: (1) Weakness (2) Bradycardia (3) Anxiety (4) Depression (5) Tobacco abuse (6) Alcohol dependence (7) Vertigo . "Provider Documentation" section prepared by Sherry Ortiz. . VTE Core Measure Inpt VTE Proph given/why not?: Enoxaparin (Lovenox)SQ
[2017-04-29 16:35] VITALS: BP 108/60; PULSE 43; TEMP 36.7; O2SAT 96
--- NOTE | 2017-04-30 12:01 | Discharge Summary ---
Discharge Summary Date of Service Apr 30, 2017. Discharge Summary Admission Date: Apr 26, 2017 at 18:53 Discharge Date: Apr 29, 2017 Principal Diagnosis: Persistent Dizziness,Fibromyalgia,Weakness Secondary Diagnoses/Problems: Please see H&P and Hospital Progress note Consultations: Neurology Medication Reconciliation New Medications: Diclofenac Sod (Voltaren) 100 Appln/100 Gm Gel 1 APPLN EXT BID for 30 Days, #1 TUBE Meclizine HCl (Meclizine HCl) 25 Mg Tab 25 MG PO TID PRN for vertigo/dizziness for 10 Days, #30 TAB Continued Medications: Fluoxetine (Prozac) 20 Mg Cap 60 MG PO QPM, CAP Furosemide (Lasix) 40 Mg Tab 40 MG PO QAM, TAB Meloxicam (Meloxicam) 15 Mg Tab 15 MG PO BID PRN for Pain Metformin Hcl (Glucophage) 500 Mg Tab 250 MG PO BID, TAB Omeprazole (Prilosec) 20 Mg Capcr 20 MG PO QAM, CAP Potassium Ext Rel (Klor-Con) 20 Meq Tabcr 10 MEQ PO QAM, TAB Ranitidine (Zantac) 150 Mg Tab 150 MG PO HS, TAB Trazodone Hcl (Trazodone) 100 Mg Tab 200 MG PO HS, TAB Discontinued Medications: Promethazine Hcl (Phenergan) 25 Mg Tab 25 MG PO Q6H PRN for Nausea, #6 TAB Admission Information HPI (per Admitting provider): This is a 36 year old female with a PMH of bipolar disorder, mood disorder, fibromyalgia, hx. of alcohol abuse with multiple DUIs; now one year clean, presents with a one day history of dizziness; states that she slept at midnight and woke up at 4AM with dizziness. She thought she was just tired, so she went to sleep - she woke up at 10AM and still had the dizziness. States that she felt the room was spinning; does have some ear ache on the L side. No illness recently. No change in medication recently. Denies chest pain or shortness of breath. 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 Has been in intermediate previously for two DUIs, but states she is one year sober. Previous smoking history; but quit about 1-2 years prior. Has a history of pericardial effusion, which resolved on its own. Denies palpitations. In the ER; had head CT and CTA performed and negative. Past Medical/Surgical History Medical Problems: (1) Alcohol dependence Status: Resolved (2) Anxiety Status: Chronic (3) Bipolar 1 disorder Status: Chronic (4) Depression Status: Chronic (5) GERD (gastroesophageal reflux disease) Status: Chronic (6) Tobacco abuse Status: Resolved (7) Vitamin D deficiency Status: Chronic Surgical Problems: (1) Previous section Status: Resolved Social History Problems: (1) Alcohol abuse Status: Chronic Family History FH: cancer FH: diabetes mellitus FH: heart disease FH: lung disease FH: seizures Social History Smoking Status: Former Smoker Drug Use: none Marital Status: in relationship Housing status: lives with family Occupational Status: employed Immunizations History of Influenza Vaccine: Yes History of Tetanus Vaccine?: No History of Pneumococcal: No History of Hepatitis B Vaccine: No Multi-Drug Resistant Organisms History of MDRO: No Allergies Coded Allergies: No Known Allergies (Verified , 04/26/17) Home Medications Scheduled Fluoxetine (Prozac), 60 MG PO QPM Furosemide (Lasix), 40 MG PO QAM Metformin Hcl (Glucophage), 250 MG PO BID Omeprazole (Prilosec), 20 MG PO QAM Potassium Ext Rel (Klor-Con), 10 MEQ PO QAM Ranitidine (Zantac), 150 MG PO HS Trazodone Hcl (Trazodone), 200 MG PO HS Scheduled PRN Meloxicam (Meloxicam), 15 MG PO BID PRN for Pain Promethazine Hcl (Phenergan), 25 MG PO Q6H PRN for Nausea Review of Systems Constitutional: + weakness, + fatigue, No fever, No chills, No sweats, No weight loss Eyes: No worsening of vision, No eye pain, No redness ENT: + problem reported (L ear ache), No hearing loss Respiratory: No cough, No sputum, No shortness of breath, No dyspnea on exertion, No dyspnea at rest, No hemoptysis Cardiovascular: No chest pain, No edema, No palpitations Abdomen: No pain, No nausea, No vomiting, No diarrhea, No constipation, No GI bleeding Musculoskeletal: + joint pain (chronic) Genitourinary - Female: No dysuria, No urinary frequency, No urinary urgency, No urinary incontinence, No urinary retention, No hematuria Neurologic: + weakness, + vertigo, + balance problems, No memory loss, No paralysis, No numbness/tingling Psychiatric: + depression symptoms (controlled with medications), + anxiety, + insomnia (controlled with medications), + substance abuse (EtOH abuse from 1999 to 2012) Endocrine: + fatigue Hematologic / Lymphatic: No abnormal bleeding/bruising Integumentary: No rash Allergic / Immunologic: No environmental allergies, No seasonal allergies Physical Ex - H&P Physical Exam Vital Signs Date Time Temp Pulse Resp B/P (MAP) Pulse Ox O2 Delivery O2 Flow Rate FiO2 04/26/17 18:47 45 16 114/74 96 Room Air 04/26/17 18:32 46 04/26/17 16:40 45 15 114/67 98 Room Air 04/26/17 15:07 54 107/54 54 104/59 71 111/73 04/26/17 14:36 52 04/26/17 14:19 36.5 64 16 106/72 97 Room Air General Appearance: no apparent distress Head: normocephalic, atraumatic Eyes: normal inspection ENT: hearing grossly normal Neck: supple Respiratory/Chest: lungs clear, normal breath sounds, no respiratory distress, no accessory muscle use Cardiovascular: regular rate, rhythm, no edema, no gallop, no JVD, no murmur, normal peripheral pulses Abdomen/GI: normal bowel sounds, non tender, soft Back: no CVA tenderness, no muscle spasm Extremities/Musculoskelatal: no calf tenderness, normal capillary refill, no pedal edema 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, no motor/sensory deficits, alert, normal mood/affect, oriented x 3 Skin: normal color Lymphatic: no adenopathy Diagnostics - H&P Diagnostics Laboratory Results Results Past 24 Hours Test 04/26/17 15:00 04/26/17 15:08 04/26/17 16:10 Range/Units White Blood Count 4.69 4.8-10.8 K/uL Red Blood Count 4.03 4.2-5.4 M/uL Hemoglobin 11.8 12.0-16.0 g/dL Hematocrit 36.0 37-47 % Mean Corpuscular Volume 89.3 80-100 fL Mean Corpuscular Hemoglobin 29.3 25-34 pg Mean Corpuscular Hemoglobin Concent 32.8 32-36 g/dl Platelet Count 194 130-400 K/uL Mean Platelet Volume 10.1 7.4-10.4 fL Neutrophils (%) (Auto) 54.8 % Lymphocytes (%) (Auto) 38.6 % Monocytes (%) (Auto) 5.8 % Eosinophils (%) (Auto) 0.6 % Basophils (%) (Auto) 0.2 % Neutrophils # (Auto) 2.57 1.4-6.5 K/uL Lymphocytes # (Auto) 1.81 1.2-3.4 K/uL Monocytes # (Auto) 0.27 0.11-0.59 K/uL Eosinophils # (Auto) 0.03 0-0.5 K/uL Basophils # (Auto) 0.01 0-0.2 K/uL RDW Standard Deviation 39.0 36.4-46.3 fL RDW Coefficient of Variation 11.9 11.5-14.5 % Immature Granulocyte % (Auto) 0.0 % Immature Granulocyte # (Auto) 0.00 0.00-0.02 K/uL Sodium Level 142 136-145 mmol/L Potassium Level 3.8 3.5-5.1 mmol/L Chloride Level 110 98-107 mmol/L Carbon Dioxide Level 26 21-32 mmol/L Anion Gap 6.0 3-11 mmol/L Blood Urea Nitrogen 18 7-18 mg/dl Creatinine 0.87 0.60-1.20 mg/dl Est Creatinine Clear Calc Drug Dose 119.9 ml/min Estimated GFR () 99.3 Estimated GFR (Non- 85.7 BUN/Creatinine Ratio 20.6 10-20 Random Glucose 84 70-99 mg/dl Calcium Level 8.7 8.5-10.1 mg/dl Magnesium Level 2.0 1.8-2.4 mg/dl Total Bilirubin 0.1 0.2-1 mg/dl Aspartate Amino Transf (AST/SGOT) 12 15-37 U/L Alanine Aminotransferase (ALT/SGPT) 16 12-78 U/L Alkaline Phosphatase 48 45-117 U/L Total Protein 6.5 6.4-8.2 gm/dl Albumin 3.2 3.4-5.0 gm/dl Globulin 3.3 2.5-4.0 gm/dl Albumin/Globulin Ratio 1.0 0.9-2 Thyroid Stimulating Hormone (TSH) 0.687 0.300-4.500 uIu/ml Lyme Disease IgG Antibody NEG NEG Lyme Disease IgM Antibody NEG NEG Bedside Troponin I < 0.030 0-0.045 ng/ml Urine Color YELLOW Urine Appearance CLEAR CLEAR Urine pH 7.5 4.5-7.5 Urine Specific [place] 1.019 1.000-1.030 Urine Protein NEG NEG Urine Glucose (UA) NEG NEG Urine Ketones NEG NEG Urine Occult Blood NEG NEG Urine Nitrite NEG NEG Urine Bilirubin NEG NEG Urine Urobilinogen NEG NEG Urine Leukocyte Esterase NEG NEG Urine Test NEG NEG Urine Opiates Screen NEG NEG Urine Methadone, Qualitative NEG NEG Urine Barbiturates NEG NEG Urine Phencyclidine (PCP) Level NEG NEG Ur Amphetamine/Methamphetamine NEG NEG MDMA (Ecstasy) Screen POS NEG Urine Benzodiazepines Screen NEG NEG Urine Cocaine Metabolite NEG NEG Urine Marijuana (THC) NEG NEG Diagnostic Radiology HEAD CTA HISTORY: Mental status change headache TECHNIQUE: Multiaxial CT images of the head were performed both before and after the intravenous administration of contrast to evaluate the major cerebral vessels. Maximum intensity projection images were also obtained. COMPARISON: None. FINDINGS: There is no mass, hematoma, midline shift, or acute infarct. Visualized intracranial internal carotid arteries, distal vertebral arteries, and basilar artery are widely patent. There is no significant stenosis, occlusion, or aneurysm seen within the bilateral ACAs, MCAs, or exceptional children's teacher. IMPRESSION: No significant stenosis, occlusion, or aneurysm within the [place]. NECK CTA HISTORY: Mental status change neck pain TECHNIQUE: Multiaxial CT images of the neck were performed following the intravenous administration of contrast to evaluate the major cervical vessels. Maximum intensity projection images were also obtained. All measurements were calculated based on NASCET criteria. COMPARISON STUDY: None. FINDINGS: The aortic arch and proximal great vessels are widely patent. There is no significant stenosis, occlusion, or dissection identified within the bilateral common carotid, internal carotid, or vertebral arteries. IMPRESSION: No significant stenosis, occlusion, or dissection identified within the carotid or vertebral arteries. Impression - H&P Impression Assessment and Plan This is a 36 year old female with a PMH of bipolar disorder, mood disorder, fibromyalgia, hx. of alcohol abuse with multiple DUIs; now one year clean, presents with a one day history of dizziness Vertigo patient seems to exhibit typical vertigo symptoms with the room spinning Head and neck CTA performed and negative plan is to admit to tele orthostatics PT for possible Dhruv check an echo (sinus cedrick; hx. of pericardial effusion) gentle hydration low sodium diet Sinus Bradycardia unsure of her resting HRs currently HRs in the 40s Lyme is negative TSH is wnl check a resting echo monitor in tele gentle hydration Fibromyalgia continue Lyrica + meloxicam as needed Bipolar/Mood Disorder continue current medications Insomnia on a very high dose of Trazodone, but states she has been on this dose for years monitor this usage, as it may be contributing to her symptoms DVT ppx Lovenox FULL CODE VTE Prophylaxis VTE Risk Assessment Done? 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 of pericardial effusion):: Small, loculated pericardial effusion adjacent to the left atrium, no hemodynamic signficance. * Normal LV chamber size and wall thickness. * Normal LV systolic function, EF 55-60%. * No segmental left ventricular wall motion abnormalities are noted. * Normal diastolic function. * No significant valvular pathology. Dhruv maneuver did not help and Meclizine is not helpful either Dizziness is persisting-will try Meclizine PRN Will consult Neurology -appreciate Input MRI of the Brain -negative Discussed with cardiology -will get an OP Walking stress test to see the response of Heart rate to activity Sinus Bradycardia unsure of her resting HRs During admission HRs in the 40s Lyme is negative,TSH is wnl Check a resting echo Monitor in tele Will get an EKG today -remains in Sinus Cedrick ~50s No acute fingings Fibromyalgia continue Lyrica + meloxicam as needed Toradol injection as needed No Narcotics Bipolar/Mood Disorder Continue current medications Insomnia on a very high dose of Trazodone, but states she has been on this dose for years monitor this usage, as it may be contributing to her symptoms DVT ppx Lovenox FULL CODE Total time spent on discharge = 35 minutes This includes examination of the patient, discharge planning, medication reconciliation, and communication with other providers. Discharge Instructions Date of Service Apr 29, 2017. Admission Reason for Admission: Weakness, Generalized Discharge Discharge Diagnosis / Problem: Dizziness Discharge Goals Goal(s): Prevent Disease Progression Activity Recommendations Activity Limitations: resume your previous activity Please take precaution to avoid fall . Instructions / Follow-Up Instructions / Follow-Up Dr Martins on 05/06/17 at 10:45 AM.Will need ENT referral.Will need Walking treadmill test in 2 -3 weeks Current Hospital Diet Patient's current hospital diet: Regular Diet Discharge Diet Recommended Diet: Regular Diet Pending Studies Studies pending at discharge: no Laboratory Results Hemoglobin A1c Test 04/26/17 15:00 Range/Units Estimated Average Glucose 103 mg/dl Hemoglobin A1c 5.2 4.5-5.6 % Medical Emergencies . Who to Call and When: Medical Emergencies: If at any time you feel your situation is an emergency, please call 911 immediately. . Non-Emergent Contact Non-Emergency issues call your: Primary Care Provider . Past History Medical & Surgical History: (1) Weakness (2) Bradycardia (3) Anxiety (4) Depression (5) Tobacco abuse (6) Alcohol dependence (7) Vertigo . "Provider Documentation" section prepared by Sherry Ortiz. . VTE Core Measure Inpt VTE Proph given/why not?: Enoxaparin (Lovenox)SQ <Electronically signed by Sherry Ortiz M.D.> Signed: 04/29/17 1544 Additional Copies To Nancy Martins D.O., Evan J, D.O.
== END 2017-04-29 18:38 | disposition home or self-care (01) ==
LOC: C.EDB 14:16 → C.2T 18:53 → ENRESERV 19:20 → C.2T 04-27 17:45
PROVIDERS: ADMIT Family Medicine; ATTEND Internal Medicine
DX: R42 Dizziness and giddiness (principal); R00.1 Bradycardia, unspecified; R53.1 Weakness; F31.9 Bipolar disorder, unspecified; K21.9 Gastro-esophageal reflux disease without esophagitis; G47.00 Insomnia, unspecified; F39 Unspecified mood [affective] disorder; M79.7 Fibromyalgia; F10.10 Alcohol abuse, uncomplicated; Z87.891 Personal history of nicotine dependence; Z83.3 Family history of diabetes mellitus; Z83.6 Family history of other diseases of the respiratory system; Z82.49 Family history of ischemic heart disease and other diseases of the circulatory system

== ENCOUNTER 2018-06-08 16:21 | Emergency (ER) | payer OTHER ==
[~2018-06-08] VITALS: Ht 179.1 cm; Wt 110.6 kg
[~2018-06-08 16:21] MED LIST changes: +FLUO40CA8 PO; -FLX/5 PO; -GLC500 PO; -HYDR-3419 PO; -LITH300T2 PO; +LTHSR/300 PO; +MELO-83 PO; -MELO15TA4 PO; +ONDA4TAB10 SL; +POTA-639 PO; -POTA20TA16 PO; +PREG100C PO; +PREG200C PO; +PROM25TA16 PO; -PROM25TA9 PO; +RANI150T85 PO; +TRD10 PO; -ZNTT/150 PO
[2018-06-08 16:32] VITALS: Ht 179.1 cm; Wt 110.6 kg
[2018-06-08] MEDS ORDERED: SODIUM CHLORIDE 0.9% 1000ML 1,000 ML IV STA (16:53)
[2018-06-08] MEDS ORDERED: GI COCKTAIL PO STA (16:53)
[2018-06-08] MEDS ORDERED: ONDANSETRON INJ 2 MG/ML 2 ML VIAL IV STA (16:53)
[2018-06-08 17:17] LABS: BASO % 0.2 %; BASO ABS # 0.01 K/uL (0-0.2); EOS % 0.6 %; EOS ABS # 0.04 K/uL (0-0.5); HEMATOCRIT 37.2 % (37-47); HEMOGLOBIN 12.4 g/dL (12.0-16.0); IG# 0.01 K/uL (0.00-0.02); LYMPH % 23.2 %; LYMPH ABS # 1.45 K/uL (1.2-3.4); MEAN CELL VOLUME 89.6 fL (80-100); MEAN CORPUSCULAR HEMOGLOBIN 29.9 pg (25-34); MEAN CORPUSCULAR HGB CONC 33.3 g/dl (32-36); MEAN PLATELET VOLUME 10.9 fL (7.4-10.4); MONO % 4.8 %; NEUT ABS # 4.45 K/uL (1.4-6.5); PLATELET COUNT 200 K/uL (130-400); RED CELL DISTRIBUTION WIDTH CV 12.3 % (11.5-14.5); RED CELL DISTRIBUTION WIDTH SD 40.3 fL (36.4-46.3); WHITE BLOOD COUNT 6.26 K/uL (4.8-10.8)
[2018-06-08] MEDS ORDERED: ONDA4TAB10 SL (17:24)
[2018-06-08] MEDS ORDERED: LIDOCAINE HCL 2% VISC SOLN 20 ML UDC ONE (17:26)
[2018-06-08] MEDS ORDERED: ALUMINUM/MAGNESIUM SUSP 30 ML UDC ONE (17:26)
[2018-06-08 17:35] LABS: ALBUMIN 3.6 gm/dl (3.4-5.0); CREATININE 0.86 mg/dl (0.60-1.20); POTASSIUM 3.3 mmol/L (3.5-5.1)
[2018-06-08] MEDS ORDERED: OPTIRAY 320 IV PRN (18:00)
--- NOTE | 2018-06-08 18:43 | DIAGNOSTIC IMAGING REPORT ---
CT SCAN OF THE ABDOMEN AND PELVIS WITH IV CONTRAST CLINICAL HISTORY: Upper abdominal pain. COMPARISON STUDY: Abdominal CT dated 11/17/2016. TECHNIQUE: Following the IV administration of 120 cc of Optiray 320, CT scan of the abdomen and pelvis is performed from the lung bases to the proximal femora. Images are reviewed in the axial, sagittal, and coronal planes. IV contrast was administered without complication. A dose lowering technique was utilized adhering to the principles of ALARA. CT DOSE: 1066.12 mGy.cm FINDINGS: Lung bases: The heart is normal in size and without pericardial effusion. There are trace pleural effusions with dependent atelectasis. There is a small hiatal hernia. Liver: The contrast-enhanced liver is enlarged, measuring 22 cm in length. The liver is otherwise normal in contour and attenuation. There is no intrahepatic biliary ductal dilatation. The hepatic veins and portal veins are patent. Gallbladder: Unremarkable. Spleen: Normal in size and attenuation. Pancreas: Unremarkable. Adrenal glands: A 1.5 cm left adrenal nodule is unchanged. This likely represents a small adenoma but cannot be definitively characterized. The right adrenal gland is normal in appearance. Kidneys: The contrast enhanced kidneys are normal in size and without hydronephrosis. The kidneys enhance symmetrically. There is a punctate nonobstructing left renal calculus. Abdominal vasculature: The abdominal aorta is normal in course and caliber. Bowel: There is mild to moderate colonic fecal retention. No bowel obstruction is seen. The appendix is well-visualized and normal. Peritoneum: There is no intraperitoneal free air or abdominal ascites. There is a fat-containing umbilical hernia. Lymphadenopathy: None. Pelvic viscera: The bladder, uterus, and adnexa are normal as visualized. There are bilateral ovarian follicles. Predominant follicle on the left measures up to 2.8 cm. Trace free fluid is noted in the cul-de-sac. Skeletal structures: No lytic or blastic lesions are seen. Mild sclerotic change is noted in the sacroiliac joints. There is a healed right posterior rib fracture. IMPRESSION: 1. There are no acute infectious or inflammatory findings in the abdomen or pelvis. 2. There are trace pleural effusions. 3. Hepatomegaly. 4. Punctate nonobstructing left renal calculus. 5. Additional findings as above. Electronically signed by: Salty Shepherd M.D. 06/08/2018 6:42 PM Dictated Date/Time: 06/08/2018 6:35 PM
[2018-06-08] MEDS ORDERED: MoRPHine SULFATE 4 MG/ML 1 ML CARP\\VIAL IV STA (19:24)
--- NOTE | 2018-06-08 19:28 | EMERGENCY ROOM VISIT NOTE ---
History First contact with patient: 16:39 Chief Complaint: ABDOMINAL PAIN Stated Complaint: SEVERE UPPER ABDOMINAL PAIN, NAUSEA Nursing Triage Summary: pt c/o upper abd pain for past 2 day. c/o nausea, no vomiting. Reduced appetite and thirst, does keep fluids and food down when she takes them. States urine seems to be darker than normal. Denies problems with stool. States no chance she is . Denies trauma. Entire abdomen is tender "like it was when I ruptured my spleen a few years back". Pt states she still has spleen, was in [place] for treatment. Abdominal pain 10/10. Pt also c/o lower back pain, states around her kidneys, rates 8/10. Hx edema, 'my doctor says my heart makes too much fluids'. Has been on lasix for years, since [id number]. History of Present Illness The patient is a 37 year old female who presents to the Emergency Room with complaints of upper abdominal pain. The patient states that she has had pain in the middle upper abdomen for the past 2 days. The pain has been persistent and makes it difficult for her to sleep. She states she has a hard time finding comfortable position. She rates the discomfort a 10/10. She has tried tramadol, meloxicam and ibuprofen without relief. She states the pain is constant. She has been nauseous but has not vomited. She states that her urine has been dark in color but denies other urinary symptoms. She does not have regular menstrual periods. She denies changes in her bowel movements or blood in her stools. She reports a history of a splenic rupture and feels that the symptoms are similar. Review of Systems A complete 10 point review of systems was reviewed with the patient with pertinent positives and negatives as per history of present illness. All else were negative. Past Medical/Surgical History Medical Problems: (1) Alcohol dependence (2) Anxiety (3) Bipolar 1 disorder (4) Depression (5) GERD (gastroesophageal reflux disease) (6) Tobacco abuse (7) Vitamin D deficiency Surgical Problems: (1) Previous section Social History Problems: (1) Alcohol abuse Family History FH: cancer FH: diabetes mellitus FH: heart disease FH: lung disease FH: seizures Social History Smoking Status: Former Smoker Alcohol Use: other Drug Use: none Marital Status: in relationship Housing Status: lives with significant other Occupation Status: employed Current/Historical Medications Scheduled Fluoxetine (Prozac), 20 MG PO QAM Fluoxetine (Prozac), 40 MG PO QPM Furosemide (Lasix), 40 MG PO QAM Pablo Carbonate (Pablo Carbonate), 300 MG PO QAM Pablo Carbonate (Pablo Carbonate), 600 MG PO QPM Metformin Hcl (Glucophage), 500 MG PO BID Omeprazole (Prilosec), 20 MG PO QAM Potassium Ext Rel (Klor-Con), 10 MEQ PO QAM Pregabalin (Lyrica), 100 MG PO QAM Pregabalin (Lyrica), 200 MG PO QPM Ranitidine (Zantac), 150 MG PO HS Trazodone Hcl (Trazodone), 100 MG PO HS Scheduled PRN Ketorolac Tromethamine (Ketorolac Tromethamine), 1 TAB PO QID PRN for Pain Meloxicam (Meloxicam), 15 MG PO BID PRN for Pain Ondasetron Odt (Zofran Odt), 4 MG SL Q6H PRN for Nausea or Vomiting Promethazine HCl (Promethazine HCl), 1 TAB PO DAILY PRN for Nausea or Vomiting Physical Exam Vital Signs Date Time Temp Pulse Resp B/P (MAP) Pulse Ox O2 Delivery O2 Flow Rate FiO2 06/08/18 19:53 36.7 58 14 119/79 95 06/08/18 19:49 58 119/79 95 Room Air 06/08/18 17:35 51 14 112/60 94 Room Air 06/08/18 16:32 36.7 84 18 114/73 97 Room Air Physical Exam VITALS: Vitals are noted on the nurse's note and reviewed by myself. Vital signs stable. GENERAL: This is a 37-year-old female, in no acute distress, nondiaphoretic, well-developed well-nourished. SKIN: The skin was without rashes. MOUTH: Mucous membranes moist. NECK: Supple without nuchal rigidity. No lymphadenopathy. HEART: Regular rate and rhythm without murmurs gallops or rubs. LUNGS: Clear to auscultation bilaterally without wheezes, rales or rhonchi. ABDOMEN: Positive bowel sounds x 4. Soft, tenderness in the epigastric region. No guarding or rebound tenderness. NEURO: Patient was alert and oriented to person place and time. Medical Decision & Procedures ER Provider Diagnostic Interpretation: CT SCAN OF THE ABDOMEN AND PELVIS WITH IV CONTRAST CLINICAL HISTORY: Upper abdominal pain. COMPARISON STUDY: Abdominal CT dated 11/17/2016. TECHNIQUE: Following the IV administration of 120 cc of Optiray 320, CT scan of the abdomen and pelvis is performed from the lung bases to the proximal femora. Images are reviewed in the axial, sagittal, and coronal planes. IV contrast was administered without complication. A dose lowering technique was utilized adhering to the principles of ALARA. CT DOSE: 1066.12 mGy.cm FINDINGS: Lung bases: The heart is normal in size and without pericardial effusion. There are trace pleural effusions with dependent atelectasis. There is a small hiatal hernia. Liver: The contrast-enhanced liver is enlarged, measuring 22 cm in length. The liver is otherwise normal in contour and attenuation. There is no intrahepatic biliary ductal dilatation. The hepatic veins and portal veins are patent. Gallbladder: Unremarkable. Spleen: Normal in size and attenuation. Pancreas: Unremarkable. Adrenal glands: A 1.5 cm left adrenal nodule is unchanged. This likely represents a small adenoma but cannot be definitively characterized. The right adrenal gland is normal in appearance. Kidneys: The contrast enhanced kidneys are normal in size and without hydronephrosis. The kidneys enhance symmetrically. There is a punctate nonobstructing left renal calculus. Abdominal vasculature: The abdominal aorta is normal in course and caliber. Bowel: There is mild to moderate colonic fecal retention. No bowel obstruction is seen. The appendix is well-visualized and normal. Peritoneum: There is no intraperitoneal free air or abdominal ascites. There is a fat-containing umbilical hernia. Lymphadenopathy: None. Pelvic viscera: The bladder, uterus, and adnexa are normal as visualized. There are bilateral ovarian follicles. Predominant follicle on the left measures up to 2.8 cm. Trace free fluid is noted in the cul-de-sac. Skeletal structures: No lytic or blastic lesions are seen. Mild sclerotic change is noted in the sacroiliac joints. There is a healed right posterior rib fracture. IMPRESSION: 1. There are no acute infectious or inflammatory findings in the abdomen or pelvis. 2. There are trace pleural effusions. 3. Hepatomegaly. 4. Punctate nonobstructing left renal calculus. 5. Additional findings as above. Laboratory Results 06/08/18 17:05 Red Blood Count 4.15, Mean Corpuscular Volume 89.6, Mean Corpuscular Hemoglobin 29.9, Mean Corpuscular Hemoglobin Concent 33.3, Mean Platelet Volume 10.9, Neutrophils (%) (Auto) 71.0, Lymphocytes (%) (Auto) 23.2, Monocytes (%) (Auto) 4.8, Eosinophils (%) (Auto) 0.6, Basophils (%) (Auto) 0.2, Neutrophils # (Auto) 4.45, Lymphocytes # (Auto) 1.45, Monocytes # (Auto) 0.30, Eosinophils # (Auto) 0.04, Basophils # (Auto) 0.01 06/08/18 17:05 Test 06/08/18 17:05 06/08/18 17:40 White Blood Count 6.26 K/uL (4.8-10.8) Red Blood Count 4.15 M/uL (4.2-5.4) Hemoglobin 12.4 g/dL (12.0-16.0) Hematocrit 37.2 % (37-47) Mean Corpuscular Volume 89.6 fL (80-100) Mean Corpuscular Hemoglobin 29.9 pg (25-34) Mean Corpuscular Hemoglobin Concent 33.3 g/dl (32-36) Platelet Count 200 K/uL (130-400) Mean Platelet Volume 10.9 fL (7.4-10.4) Neutrophils (%) (Auto) 71.0 % Lymphocytes (%) (Auto) 23.2 % Monocytes (%) (Auto) 4.8 % Eosinophils (%) (Auto) 0.6 % Basophils (%) (Auto) 0.2 % Neutrophils # (Auto) 4.45 K/uL (1.4-6.5) Lymphocytes # (Auto) 1.45 K/uL (1.2-3.4) Monocytes # (Auto) 0.30 K/uL (0.11-0.59) Eosinophils # (Auto) 0.04 K/uL (0-0.5) Basophils # (Auto) 0.01 K/uL (0-0.2) RDW Standard Deviation 40.3 fL (36.4-46.3) RDW Coefficient of Variation 12.3 % (11.5-14.5) Immature Granulocyte % (Auto) 0.2 % Immature Granulocyte # (Auto) 0.01 K/uL (0.00-0.02) Anion Gap 7.0 mmol/L (3-11) Est Creatinine Clear Calc Drug Dose 121.7 ml/min Estimated GFR () 100.0 Estimated GFR (Non- 86.3 BUN/Creatinine Ratio 16.1 (10-20) Calcium Level 9.0 mg/dl (8.5-10.1) Total Bilirubin 0.4 mg/dl (0.2-1) Direct Bilirubin 0.1 mg/dl (0-0.2) Aspartate Amino Transf (AST/SGOT) 13 U/L (15-37) Alanine Aminotransferase (ALT/SGPT) 19 U/L (12-78) Alkaline Phosphatase 55 U/L (45-117) Total Protein 7.0 gm/dl (6.4-8.2) Albumin 3.6 gm/dl (3.4-5.0) Lipase 155 U/L (73-393) Urine Color DK YELLOW Urine Appearance CLEAR (CLEAR) Urine pH 7.5 (4.5-7.5) Urine Specific [place] 1.031 (1.000-1.030) Urine Protein NEG (NEG) Urine Glucose (UA) NEG (NEG) Urine Ketones TRACE (NEG) Urine Occult Blood NEG (NEG) Urine Nitrite NEG (NEG) Urine Bilirubin NEG (NEG) Urine Urobilinogen NEG (NEG) Urine Leukocyte Esterase TRACE (NEG) Urine WBC (Auto) 1-5 /hpf (0-5) Urine RBC (Auto) 0-4 /hpf (0-4) Urine Hyaline Casts (Auto) 1-5 /lpf (0-5) Urine Epithelial Cells (Auto) >30 /lpf (0-5) Urine Bacteria (Auto) NEG (NEG) Urine Test NEG (NEG) Medications Administered Medications (Trade) Dose Ordered Sig/Abel Route Start Time Stop Time Status Last Admin Dose Admin Sodium Chloride 1,000 ml @ 999 mls/hr Q1H1M STAT IV 06/08/18 16:53 06/08/18 17:53 DC 06/08/18 17:37 999 MLS/HR Ondansetron HCl (Zofran Inj) 4 mg NOW STAT IV 06/08/18 16:53 06/08/18 16:55 DC 06/08/18 17:38 4 MG Al Hydroxide/Mg Hydroxide (Maalox Susp) 30 ml STK-MED ONCE .ROUTE 06/08/18 17:26 06/08/18 17:27 DC 06/08/18 17:38 30 ML Lidocaine HCl (Viscous Lidocaine 2% Soln) 20 ml STK-MED ONCE .ROUTE 06/08/18 17:26 06/08/18 17:27 DC 06/08/18 17:38 10 ML Morphine Sulfate (MoRPHine SULFATE INJ) 4 mg NOW STAT IV 06/08/18 19:24 06/08/18 19:27 DC 06/08/18 19:36 4 MG Medical Decision Differential diagnosis includes cholecystitis, GERD, gastritis, pancreatitis, appendicitis, gastroenteritis, among others. The patient is a 37-year-old female who presents today complaining of upper abdominal pain. Labs revealed no leukocytosis, anemia or concerning electrolyte abnormality. Urinalysis was not suggestive of infection. Urine was negative. Patient was treated with a GI cocktail. This gave her no relief. A CT scan was performed and showed no acute findings within the abdomen or pelvis. Patient was given a small dose of morphine for her pain. She already takes Zantac and Prilosec for GERD. She was advised to follow-up with her primary care provider for further evaluation. Based on the patient's presentation and work up, I feel the patient is stable for outpatient treatment. The patient was educated to return to the emergency department for any worsening of their current condition or new/concerning symptoms. She will follow up with her PCP. Medication Reconcilliation Current Medication List: was personally reviewed by la Blood Pressure Screening Patient's blood pressure: Normal blood pressure Impression Primary Impression: Epigastric abdominal pain Departure Information Dispostion Home / Self-Care Condition GOOD Referrals Elaina Paul A. P.A. (PCP) Patient Instructions My [facility] Additional Instructions You have been treated in the Emergency Department your Abdominal Pain. Laboratory results and imaging studies have ruled out any emergent causes for your abdominal pain which would warrant admission or surgery. For pain control, you can use the following [id number] medicines (if >12 yo): - Regular strength (325mg/tab) Tylenol (acetaminophen) 2 tabs every 4-6 hours as needed. Do not exceed 12 tablets in a 24 hour period. Avoid taking more than 4 grams (4000 mg) of Tylenol per day. This includes any other sources of acetaminophen you may take on a regular basis. Drink plenty of water and stay well hydrated. As with any trip to the Emergency Department, you should follow-up with your Primary Care Provider from today's visit. Return to the emergency department if your symptoms persist despite treatment plan outlined above or if the following symptoms occur: Worsening pain, vomiting , fevers or other new/concerning symptoms.
[2018-06-08 19:53] VITALS: BP 119/79; PULSE 58; TEMP 36.7; O2SAT 95
== END 2018-06-08 19:53 | disposition home or self-care (01) ==
LOC: C.EDB 16:22
DX: R10.13 Epigastric pain (principal); K21.9 Gastro-esophageal reflux disease without esophagitis; R60.9 Edema, unspecified; F31.9 Bipolar disorder, unspecified; F32.9 Major depressive disorder, single episode, unspecified; F41.9 Anxiety disorder, unspecified; Z79.899 Other long term (current) drug therapy; Z87.891 Personal history of nicotine dependence